=== PATIENT | female | born 1950 | race Caucasian/White ===

== ENCOUNTER → 2021-02-18 10:19 | Outpatient (CLI) | payer MEDICARE, OTHER, SELFPAY ==
--- NOTE | ~2021-02-18 | MM_ITS ---
EXAMINATION: MM screening deacon BI w lila HISTORY: Screening TECHNIQUE: Craniocaudal and mediolateral oblique 3-D tomosynthesis images were obtained and synthetic 2-D images were generated. CAD analysis was submitted and interpreted. COMPARISON: Comparison to multiple prior studies sequentially, with oldest reviewed study dated 07/16. BREAST PARENCHYMAL COMPOSITION: There are scattered areas of fibroglandular density. FINDINGS: There are benign left breast calcifications. There is no evidence of suspicious mass, calci fication, or architectural distortion to suggest malignancy in either breast. There has been no suspi cious interval change. IMPRESSION: 1. No mammographic evidence of malignancy. 2. Recommend routine screening mammography in one year. BI-RADS Category 1: Negative Reviewed, dictated and finalized at location A. IC SPECIALIST
== END ==
PROVIDERS: Visit Provider Family Medicine
DX: Z12.31 Encounter for screening mammogram for malignant neoplasm of breast (principal)
CPT/HCPCS: 77063; 77067

== ENCOUNTER 2023-03-16 15:10 | Outpatient (CLI) | payer MEDICARE, SELFPAY ==
--- NOTE | ~2023-03-16 | XR_ITS ---
EXAMINATION: XR hand RT min 3V DATE: 03/16/2023 16:02 INDICATION: Right hand pain. TECHNIQUE: 3 views of right hand were obtained. COMPARISON: None. FINDINGS: Bone alignment is normal. No fracture. There is severe osteoarthritis of distal radioulnar joint and radiolunate joint. There is mild osteoarthritis of lunate-capitate joint and triscaphe join t. There is severe osteoarthritis of first carpometacarpal joint. There is mild osteoarthritis of man y of the metacarpophalangeal joints and interphalangeal joints. There is moderate osteoarthritis of f irst interphalangeal joint, second metacarpophalangeal joint, second and third proximal interphalange al joints, and second distal interphalangeal joint. There is a loose body at first carpometacarpal shruthi int. IMPRESSION: 1. Polyarticular osteoarthritis. Reviewed, dictated and finalized at location E. IT SUPPORT SPECIALIST
== END 2023-03-16 15:11 ==
PROVIDERS: PCP Family Medicine; Visit Provider Family Medicine
DX: M79.641 Pain in right hand (principal); M19.041 Primary osteoarthritis, right hand
CPT/HCPCS: 73130

== ENCOUNTER 2023-08-02 09:56 | Outpatient (CLI) | payer MEDICARE, SELFPAY ==
--- NOTE | ~2023-08-02 | XR_ITS ---
XR knee LT min 4V Ordering provider: Miguel Orozco MD History: . M17.0 - Bilateral primary osteoarthritis of knee . Comparison: August 08, 1999 and FINDINGS: BONES: No acute fracture or dislocation. JOINT SPACES: Narrowing of the lateral compartment. Marginal osteophytes. Osteoarthritic changes of t he patellofemoral joint. SOFT TISSUES: Normal. IMPRESSION: No acute osseous abnormality left knee. Osteoarthritic changes of the knee and patellofemoral joint. Reviewed, dictated and finalized at location A.
--- NOTE | ~2023-08-02 | XR_ITS ---
XR knee RT min 4V Ordering provider: Miguel Orozco MD History: . M17.0 - Bilateral primary osteoarthritis of knee . Comparison: None. FINDINGS: BONES: No acute fracture or dislocation. JOINT SPACES: Severe narrowing of the medial compartment. Osteoarthritic changes of the patellofemora l joint. SOFT TISSUES: Normal. IMPRESSION: No acute osseous abnormality right knee. Severe osteoarthritic changes of the knee and patellofemoral joint. Reviewed, dictated and finalized at location A.
== END 2023-08-02 09:57 | disposition home or self-care (01) ==
PROVIDERS: PCP Nurse Practitioner Family; Visit Provider Orthopaedic Surgery
DX: M17.0 Bilateral primary osteoarthritis of knee (principal)
CPT/HCPCS: 73564

== ENCOUNTER 2024-03-14 15:30 | Outpatient (CLI) | payer MEDICARE, SELFPAY ==
--- NOTE | ~2024-03-14 | XR_ITS ---
EXAMINATION: XR knee LT min 4V, XR knee RT min 4V DATE: 03/14/2024 15:44 INDICATION: Bilateral primary osteoarthritis of the knees TECHNIQUE: 1. Weight bearing anteroposterior and Zamora, sunrise, and flexed lateral views of the right knee were obtained 2. Weight bearing anteroposterior and Zamora, sunrise, and flexed lateral views of the left knee w ere obtained COMPARISON: None. FINDINGS: Right knee: 8 degrees genu varum. No fracture. Tricompartmental osteoarthritis with moderate to large marginal o steophytes all 3 compartments, severe joint space narrowing in the medial compartment, moderate joint space narrowing at the medial side of the lateral compartment and mild in the patellofemoral compart ment. No right knee joint effusion. Subcutaneous varicosities about the lateral thigh and medial calf . Left knee: 12 degrees genu valgus. No fracture. There is also tricompartmental osteoarthritis with moderate to l arge marginal osteophytes in all 3 compartments, severe joint space narrowing in the lateral compartm ent, mild to moderate joint space narrowing the patellofemoral compartment and moderate joint space n arrowing at the lateral side of the medial compartment. No knee joint effusion. Subcutaneous varicosi ties at the lateral aspect of the knee and medial aspect of the calf. IMPRESSION: 1. Tricompartmental osteoarthritis of both knees, severe in the medial compartment of the right knee in the lateral compartment of the left knee. Reviewed, dictated and finalized at location A. RCYCLE DESIGNER IMPRESSION: 1. Tricompartmental osteoarthritis of both knees, severe in the medial compartm ent of the right knee in the lateral compartment of the left knee.
== END 2024-03-14 15:31 | disposition home or self-care (01) ==
PROVIDERS: PCP Nurse Practitioner Family; Visit Provider Orthopaedic Surgery
DX: M17.0 Bilateral primary osteoarthritis of knee (principal)
CPT/HCPCS: 73564

== ENCOUNTER 2024-05-02 13:16 | Outpatient (CLI) | payer MEDICARE, SELFPAY ==
--- NOTE | ~2024-05-02 | CT_ITS ---
EXAMINATION: CT LE RT wo con DATE: 05/02/2024 13:24 INDICATION: Right knee osteoarthritis for preoperative planning TECHNIQUE: High resolution computed tomography (CT) of the right lower extremity from the hip through the ankle was performed without intravenous contrast. Additional sagittal and coronal reconstruction s were performed. Automated exposure control and iterative reconstruction technique were employed. Th e dose-length product was 1846.11 mGy-cm. COMPARISON: Knee radiographs dated 03/14/2024 FINDINGS: Old distal fibular fracture which is healed in essentially anatomic alignment with lateral plate and screw fixation. No acute fractures. Polyarticular osteoarthritis, severe at the medial compartment of the left knee resulting in mild genu varum. Additional moderate osteoarthritis at the patellofemoral compartment of the right knee and multiple tarsometatarsal joints. Mild osteoarthritis at the right hip, ankle and many of the remaining joints in the right foot. Small to moderate-sized right knee gissel nt effusion. Osteitis pubis. Sigmoid diverticulosis without evident diverticulitis. No pathologically enlarged pelvic or right inguinal lymphadenopathy. IMPRESSION: 1. Severe medial compartment predominant tricompartmental osteoarthritis of the right knee with small to moderate knee joint effusion. Reviewed, dictated and finalized at location B.
--- NOTE | 2024-05-02 13:26 | ECG_ITS ---
Test Date: 2024-05-02 13:56:51 Measurements Intervals [place] Rate: 74 P: 76 MT: 176 QRS: -11 QRSD: 110 T: 22 QT: 397 QTc: 441 Interpretive Statements SINUS RHYTHM WITH OCCASIONAL SUPRAVENTRICULAR PREMATURE COMPLEXES INCOMPLETE RIGHT BUNDLE BRANCH BLOCK [90+ ms QRS DURATION, TERMINAL R IN V1/V2, 40+ ms S IN I/aVL/V4/V5/V6] WARNING: DATA QUALITY MAY AFFECT INTERPRETATION No previous ECG available for comparison Electronically Signed On 05-02-2024 14:41:13 CDT by Williams Mckeon M.D.
--- OUTSIDE RECORDS SUMMARY | 2024-05-02 13:44 | XMS_ITS | CONTINUITY OF CARE DOCUMENT ---
Author Name emma carter Address Unknown Organization [facility] Address [address] [place] [address] Phone [phone] Care Team Providers Care Leasing Machine Tender Name Role Phone Tosha SWANN [facility] Unavailable [phone] SUNIL TORRES MD Unavailable SUNIL TORRES MD Unavailable [phone] INSURANCE PROVIDERS Payer name Policy type / Coverage type [place] red republican ID [employer] insurance [employer] [id number]
--- OUTSIDE RECORDS SUMMARY | 2024-05-02 13:44 | XMS_ITS | Continuity of Care Document ---
Author Organization [facility] Address [address] [place] [address] Phone Care Team Providers Care Automobile Assembler Name Role Phone Herberth Winkler Unavailable Unavailable Procedures Procedure Date Eye Exam & Treatment Refraction Eye Exam & Treatment Refraction Advance Directives Directive Yes / No Effective Date File Name No Information Encounters Encounter Description Practice Location Reason(s) For Visit Diagnoses Date Provider Providers Copied on Encounter [facility], [address], [place], [place], [id number], tel:[phone] [facility] No Information [address] Kevin. [address], [place], [place], [facility], [place]. tel:[phone] [facility], [address] [place] [address] [address], [place], [place], [id number], tel:[phone] [facility] No Information [address] Maxime Bryce. [address], [place], [place], [facility], [place]. tel:[phone] Family History Family Member Type Diagnosis Age At Onset No Information Payers Payer name Insurance type Covered alliance party ID Authoriza tion(s) No Information Social History Type Description Quantity Date Captured Comments Sex Female Smoking Status No Information Chief Complaint And Reason For Visit No Information Reason For Referral Reason For Referral No Information History Of Present Illness Encounter Date Complaint History Of Prese nt Illness No Information Functional Status Date Functional Assessmen t No Information Instructions Date Instruction Additional Infor mation No Information Assessments Type Assessment Date No Information Patient Care Teams Name Effective Dates (start - stop) Status Members No Information
--- OUTSIDE RECORDS SUMMARY | 2024-05-02 13:44 | XMS_ITS | Data Portability ---
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 Plan of Treatment Reminders Order Date Submit Date Provider Last Modified By Organization Details Last Modified Time Details Appointments None recorded. Lab lipid panel, serum 2022 023 [email or web address] [facility] (Lab), [address] [place], [address], 3 12:53:42 lipid panel, serum 2022 023 [email or web address] [facility] (Lab), [address] [place], [address], 3 11:29:25 BMP, serum or plasma 2022 023 [email or web address] [facility] (Lab), [address] [place], [address], 3 11:29:36 CBC w/ auto diff 2022 023 [email or web address] [facility] (Lab), [address] [place], [address], 3 11:29:46 hepatic function panel, serum 2022 023 [email or web address] [facility] (Lab), [address] [place], [address], 3 11:30:18 glycohemogl obin, total, blood [email or web address] (Lab), [address] [place], [address], 3 11:30:47 vitamin D, 25-hydroxy, total, serum [email or web address] [place] [address] (Lab), [address] [place], [address], 3 11:30:32 Referral hand surgeon referral - Please call patient to schedule an appointment . 2023 024 [email or web address] Miguel Orozco MD, [address], [place], [address], 4 09:00:[address] referral - Please call patient to schedule an appointment 2023 024 [email or web address] Shaun Cowart, [address] [facility] , [address], [place], [address], 4 08:44:18 Procedures None recorded. Surgeries None recorded. Imaging MAMMO, screening, bilateral - Please call pt to schedule 2023 024 [email or web address] [facility], [address], [address], [place], [address], 4 09:42:03 Medication Orders dexlansopra zole 60 mg capsule,bip hase delayed release 2023 024 [facility], [address], [place], [place], [id number], 4 14:33:47 sertraline 100 mg tablet 2023 024 [facility], [address], [place], [place], [id number], 4 14:33:43 sertraline 100 mg tablet 2022 023 TOD [facility], [address] , [place], [place], [id number], 3 11:17:38 Patient TargetsNo targets recorded. Patient Instructions Encounter Date Encounter Id Patient Instructions Last Modified By Organization Details Last Modified Time 08/22/2022 [id number] dementia rating scale-2* TOD Not available 08/22/2022 13:04:41 alcohol misuse* TOD Not available 08/22/2022 13:04:56 depression screening* TOD Not available 08/22/2022 13:05:02 multi-dimensiona l health assessment questionnaire* TOD Not available 08/22/2022 13:04:23 Personalized Hea lth Plan and Screening Recommendations Advance Directives - Do you have one? No Advance Directives - Do we have your advance directive on file in your health record? Primary Prevention/Interven tion (prevents or decreases the chance of common diseases from occurring) Smoking Risk: Non Smoker Alcohol Misuse Screening: Negative Weight: Appropriate Overwei ght continue your current weight loss efforts try to lose 5% of your body weight try to lose 10% of your body weight Physical activity: Need more exercise/physical activity minimum of 10-20 minutes of activity that causes mild breathlessness/day Nutrition: Good Fall Risk (screened today): Low Vaccines Pneumococcal: Ordered Recommended today Influenza: Chronic Disease Risks Stroke: Low Risk I have no recommendations Heart Attack: Low risk I have no recommendations Clogging of the Arteries: Low risk I have no recommendations Diabetes: Low Risk I have no recommendations Secondary Prevention/Interven tion (detects treatable diseases before they may cause symptoms, disability, or ) Breast Cancer Screening with mammogram: Your next mammogram: Ordered Recommended today Cervical/Uterine/Ov shavon Cancer Screening: No screening necessary Osteoporosis Screening: Your next DEXA in: Ordered Recomme nded today Date Screening Last Performed: Colon Cancer Screening: Colonoscopy Date Screening Last Performed: 09/23/13 Eye Disease Screening: Dementia Risk: Low I have no recommendations Depression Screening: Negative [email or web address] Not available 08/22/2022 12:47:05 12/06/2023 [id number] dementia rating scale-2* TOD Not available 12/06/2023 15:04:45 alcohol misuse* TOD Not available 12/06/2023 15:04:36 depression screening* TOD Not available 12/06/2023 15:04:30 multi-dimensiona l health assessment questionnaire* TOD Not available 12/06/2023 15:04:40 Personalized Hea lt Plan and Screening Recommendations Advance Directives - Do you have one? No Advance Directives - Do we have your advance directive on file in your health record? Primary Prevention/Interven tion (prevents or decreases the chance of common diseases from occurring) Smoking Risk: Non Smoker Alcohol Misuse Screening: Negative Weight: Appropriate Overwei ght continue your current weight loss efforts try to lose 5% of your body weight try to lose 10% of your body weight Physical activity: Need more exercise/physical activity minimum of 10-20 minutes of activity that causes mild breathlessness/day minimum of 20-30 minutes activity that causes mild breathlessness/day Nutrition: Good Average Fall Risk (screened today): Low Vaccines Pneumococcal: Ordered Recommended today Recommended today, but you have declined No further needed Influenza: Ordered Recommended today Recommended today, but you have declined Chronic Disease Risks Stroke: Low Risk I have no recommendations Heart Attack: Low risk I have no recommendations Clogging of the Arteries: Low risk I have no recommendations Diabetes: Low Risk I have no recommendations Secondary Prevention/Interven tion (detects treatable diseases before they may cause symptoms, disability, or ) Breast Cancer Screening with mammogram: No screening necessary Cervical/Uterine/Ov shavon Cancer Screening: No screening necessary Osteoporosis Screening: No screening necessary Date Screening Last Performed: Colon Cancer Screening: No screening necessary No screening necessary Date Screening Last Performed: Eye Disease Screening: No Eye exam necessary Dementia Risk: Low I have no recommendations Depression Screening: Negative [email or web address] Not available 12/06/2023 10:56:18 Reason for Referral Doorkeeper Referral for G ranulocytosis Please call patient to schedule an appointment Referring Physician: Stone Aguilar, Family Medicine, Encounter Date: 03/22/2023 Hand Surgeon Referral for Pa in in right hand right hand pain Please call patient to schedule an appointment. Referring Physician: Stone Aguilar, Family Medicine, Encounter Date: 03/22/2023 Results Created Date Observation Date Name Description Value Unit Range Abnormal Flag Note LastModifiedBy Organization Detail LastModifiedTime 07/15/19 22 07/14/2021 AMBIG ABBRE V LP DEFAU LT ambig abbrev LP default commen t A hand- writt en panel /prof ile was recei mukesh from your offic e. In accor dance with the [facility] Ambig uous Test Code Polic y dated August 2002, we have compl eted your order by using the close st curre ntly or forme rly recog nized AMA panel . We have abril childress Lipid Panel , Test Code #30[address]. If this is not the testi ng you wishe d to recei ve on this speci men, pleas e conta ct the [facility] Clien t Inqui ry/Te chnic al Servi louis Depar tment to nithin fy the test order . We appre ciate your busin ess. Not Available [facility] [address], [place], [address], 07/15/2021 07:12:23 07/15/19 22 07/14/2021 AMBIG ABBRE V BMP8 DEFAU LT ambig abbrev BMP8 default commen t A hand- writt en panel /prof ile was recei mukesh from your offic e. In accor dance with the [facility] Ambig uous Test Code Polic y dated August 2002, we have compl eted your order by using the close st curre ntly or forme rly recog nized AMA panel . We have abril childress Basic Metab olic Panel (8), Test Code #3227 [address]. If this is not the testi ng you wishe d to recei ve on this speci men, pleas e conta ct the [facility] Clien t Inqui ry/Te chnic al Servi louis Depar tment to nithin fy the test order . We appre ciate your busin ess. Not Available [facility] ([facility]) [address], [place], [address], 07/15/2021 07:12:23 07/15/19 22 07/15/2021 VITAM IN D, 25-HY DROXY vitamin D, 25-hydroxy 35.5 NG/mL 30.0-1 00.0 Vitam in D defic iency has been defin ed by the Insti tute of Medic ine and an Endoc rine Socie ty pract ice guide line as a level of serum 25-OH vitam in D less than 20 ng/mL (1,2) . The Endoc rine Socie ty went on to furth er defin e vitam in D insuf ficie ncy as a level betwe en 21 and 29 ng/mL (2). 1. IOM (Inst itute of Medic ine). 2010. Raghav ry refer ence sharon es for calci um and D. Tapan limon [place]: The Natio nal [facility] Press . 2. Maddi isaacs MF, Yu hodges [place], Radha off-F errar i MEDEL, et al. Evalu ation , treat ment, and preve ntion of vitam in D defic iency : an Endoc rine Socie ty clini vicky pract ice guide line. JCEM. 2010; 96(7) :1911 -30. Not Available [facility] ([facility]) [address], [place], [address], 07/15/2021 07:12:23 07/15/19 22 07/15/2021 TSH TSH 3.550 uIU/m L 0.450- 4.500 Not Available [facility] ([facility]) [address], [place], [address], 07/15/2021 07:12:22 07/15/19 22 07/15/2021 LIPID PANEL cholesterol, total 191 mg/dL 100-19 9 Not Available [facility] ([facility]) [address], [place], [address], 07/15/2021 07:12:22 07/15/19 22 07/15/2021 LIPID PANEL triglyceride s 112 mg/dL 0-149 Not Available [facility] [address] [place], [address], 07/15/2021 07:12:22 07/15/19 22 07/15/2021 LIPID PANEL HDL cholesterol 59 mg/dL >39 Not Available [facility] [address] [place], [address], 07/15/2021 07:12:22 07/15/19 22 07/15/2021 LIPID PANEL VLDL cholesterol vicky 20 mg/dL 5-40 Not Available [facility] [address] [place], [address], 07/15/2021 07:12:22 07/15/19 22 07/15/2021 LIPID PANEL LDL chol calc (nih) 112 mg/dL 0-99 above high normal Not Available [facility] ([facility]) [address] [place], [address], 07/15/2021 07:12:22 07/15/19 22 07/15/2021 LIPID PANEL comment: four h club agent Not Available [facility] ([facility]) [address] [place], [address], 07/15/2021 07:12:22 07/15/19 22 07/15/2021 BASIC METAB OLIC PANEL (8) glucose 100 mg/dL 65-99 above high normal Not Available [facility] ([facility] [address] [place], [address], 07/15/2021 07:12:22 07/15/19 22 07/15/2021 BASIC METAB OLIC PANEL (8) BUN 15 mg/dL 8-27 Not Available [facility] ([facility] [address] [place], [address], 07/15/2021 07:12:22 07/15/19 22 07/15/2021 BASIC METAB OLIC PANEL (8) creatinine 0.67 mg/dL 0.57-1 .00 Not Available [facility] ([facility] [address] [place], [address], 07/15/2021 07:12:22 07/15/19 22 07/15/2021 BASIC METAB OLIC PANEL (8) potassium 4.3 mmol/ L 3.5-5. 2 Not Available [facility] ([facility] [address] [place], [address], 07/15/2021 07:12:22 07/15/19 22 07/15/2021 BASIC METAB OLIC PANEL (8) eGFR 93 mL/mi n/1.7 3 >59 Not Available [facility] ([facility]) [address] [place], [address], 07/15/2021 07:12:22 07/15/19 22 07/15/2021 BASIC METAB OLIC PANEL (8) BUN/creatini ne ratio 22 12-28 Not Available [facility] [address] [place], [address], 07/15/2021 07:12:22 07/15/19 22 07/15/2021 BASIC METAB OLIC PANEL (8) sodium 138 mmol/ L 134-14 4 Not Available [facility] [address] [place], [address], 07/15/2021 07:12:22 07/15/19 22 07/15/2021 BASIC METAB OLIC PANEL (8) chloride 101 mmol/ L 96-106 Not Available [facility] [address] [place], [address], 07/15/2021 07:12:22 07/15/19 22 07/15/2021 BASIC METAB OLIC PANEL (8) carbon dioxide, total 24 mmol/ L 20-29 Not Available [facility] ([facility] [address], [place], [address], 07/15/2021 07:12:22 07/15/19 22 07/15/2021 BASIC METAB OLIC PANEL (8) calcium 9.1 mg/dL 8.7-10 .3 Not Available [facility] ([facility] [address], [place], [address], 07/15/2021 07:12:22 07/15/19 22 07/15/2021 CBC/D IFF AMBIG UOUS DEFAU LT MCHC 33.0 g/dL 31.5-3 5.7 Not Available [facility] ([facility] [address], [place], [address], 07/15/2021 07:12:21 07/15/19 22 07/15/2021 CBC/D IFF AMBIG UOUS DEFAU LT WBC 5.1 x10e3 /uL 3.4-10 .8 Not Available [facility] ([facility] [address], [place], [address], 07/15/2021 07:12:21 07/15/19 22 07/15/2021 CBC/D IFF AMBIG UOUS DEFAU LT RBC 4.50 x10e6 /uL 3.77-5 .28 Not Available [facility] [address], [place], [address], 07/15/2021 07:12:21 07/15/19 22 07/15/2021 CBC/D IFF AMBIG UOUS DEFAU LT hemoglobin 13.3 g/dL 11.1-1 5.9 Not Available [facility] ([facility] [address], [place], [address], 07/15/2021 07:12:21 07/15/19 22 07/15/2021 CBC/D IFF AMBIG UOUS DEFAU LT hematocrit 40.3 % 34.0-4 6.6 Not Available [facility] ([facility] [address], [place], [address], 07/15/2021 07:12:21 07/15/19 22 07/15/2021 CBC/D IFF AMBIG UOUS DEFAU LT MCV 90 fL 79-97 Not Available [facility] [address], [place], [address], 07/15/2021 07:12:21 07/15/19 22 07/15/2021 CBC/D IFF AMBIG UOUS DEFAU LT MCH 29.6 pg 26.6-3 3.0 Not Available [facility] [address], [place], [address], 07/15/2021 07:12:21 07/15/19 22 07/15/2021 CBC/D IFF AMBIG UOUS DEFAU LT RDW 14.7 % 11.7-1 5.4 Not Available [facility] [address] [place], [address], 07/15/2021 07:12:21 07/15/19 22 07/15/2021 CBC/D IFF AMBIG UOUS DEFAU LT platelets 230 x10e3 /uL 150-45 0 Not Available [facility] [address] [place], [address], 07/15/2021 07:12:21 07/15/19 22 07/15/2021 CBC/D IFF AMBIG UOUS DEFAU LT neutrophils 54 % not estab. Not Available [facility] [address] [place], [address], 07/15/2021 07:12:21 07/15/19 22 07/15/2021 CBC/D IFF AMBIG UOUS DEFAU LT lymphs 34 % not estab. Not Available [facility] [address], [place], [address], 07/15/2021 07:12:21 07/15/19 22 07/15/2021 CBC/D IFF AMBIG UOUS DEFAU LT monocytes 6 % not estab. Not Available [facility] [address], [place], [address], 07/15/2021 07:12:21 07/15/19 22 07/15/2021 CBC/D IFF AMBIG UOUS DEFAU LT eos 5 % not estab. Not Available [facility] [address] [place], [address], 07/15/2021 07:12:21 07/15/19 22 07/15/2021 CBC/D IFF AMBIG UOUS DEFAU LT basos 1 % not estab. Not Available [facility] [address], [place], [address], 07/15/2021 07:12:21 07/15/19 22 07/15/2021 CBC/D IFF AMBIG UOUS DEFAU LT immature cells four h club agent Not Available [facility] [address] [place], [address], 07/15/2021 07:12:21 07/15/19 22 07/15/2021 CBC/D IFF AMBIG UOUS DEFAU LT neutrophils (absolute) 2.8 x10e3 /uL 1.4-7. 0 Not Available [facility] [address] [place], [address], 07/15/2021 07:12:21 07/15/19 22 07/15/2021 CBC/D IFF AMBIG UOUS DEFAU LT lymphs (absolute) 1.7 x10e3 /uL 0.7-3. 1 Not Available [facility] [address] [place], [address], 07/15/2021 07:12:21 07/15/19 22 07/15/2021 CBC/D IFF AMBIG UOUS DEFAU LT monocytes(ab solute) 0.3 x10e3 /uL 0.1-0. 9 Not Available [facility] [address], [place], [address], 07/15/2021 07:12:21 07/15/19 22 07/15/2021 CBC/D IFF AMBIG UOUS DEFAU LT eos (absolute) 0.3 x10e3 /uL 0.0-0. 4 Not Available [facility] [address], [place], [address], 07/15/2021 07:12:21 07/15/19 22 07/15/2021 CBC/D IFF AMBIG UOUS DEFAU LT baso (absolute) 0.1 x10e3 /uL 0.0-0. 2 Not Available [facility] [address], [place], [address], 07/15/2021 07:12:21 07/15/19 22 07/15/2021 CBC/D IFF AMBIG UOUS DEFAU LT immature granulocytes 0 % not estab. Not Available [facility] [address], [place], [address], 07/15/2021 07:12:21 07/15/19 22 07/15/2021 CBC/D IFF AMBIG UOUS DEFAU LT immature grans (abs) 0.0 x10e3 /uL 0.0-0. 1 Not Available [facility] [address], [place], [address], 07/15/2021 07:12:21 07/15/19 22 07/15/2021 CBC/D IFF AMBIG UOUS DEFAU LT NRBC four h club agent Not Available [facility] [address], [place], [address], 07/15/2021 07:12:21 07/15/19 22 07/15/2021 CBC/D IFF JOSÉ DOMINGUEZ DEFAU LT hematology comments: four h club agent A hand- writt en panel /prof ibarra was recei mukesh from your offic e. In accor dance with the [facility] José dominguez Test Code Polic y dated August 2002, we have assig monroe CBC with Diffe renti al/Pl atele t, Test Code #[address]. If this is not the testi ng you wishe d to recei ve on this speci men, pleas e conta ct the [facility] Clien t Inqui ry/ Techn ical Servi louis Depar tment to nithin fy the test order . We appre ciate your busin ess. Not Available [facility] ([facility]) [address], [place], [address], 07/15/2021 07:12:21 02/18/19 22 02/18/2021 MAMMO , scree melani, digit al, bilat eral No observ ation record ed. [id number], [address], 04/06/2022 06:20:00 03/17/19 24 03/16/2023 XR, hand No observ ation record ed. [email or web address] [facility] [address], [place], [address], 04/28/2023 12:10:27 07/31/19 24 07/27/2023 US, thyro id No observ ation record ed. [email or web address] [facility] [address], [place], [address], 08/01/2023 09:21:53 08/02/19 24 08/02/2023 XR, knee No observ ation record ed. [email or web address] [place] [address], [place], [address], 08/30/2023 17:32:48 08/02/19 24 08/02/2023 XR, knee No observ ation record ed. [email or web address] [facility] [address], [place], [address], 08/30/2023 17:33:04 03/15/19 25 03/14/2024 XR, knee, 3 view No observ ation record ed. [facility] [address], [place], [address], 03/17/2024 15:05:37 Result Notes None recorded. Problems Name Problem SNOMED Code Status Onset Date Resolution Date Notes Provider Name and Address Organization Details Recorded Time Gastroesop hageal reflux disease 884514664 Active Not Available [facility] 3 06:15:10 Osteoarthr itis of knee 997848634 Active Not Available [facility] 3 06:15:10 Knee pain Active Not Available [facility] 3 06:15:10 Osteoarthr itis 080301951 Active Not Available [facility] 3 06:15:10 Vitamin D deficiency 73636179 Active 2022 JONNY Santoyo [address], [address], [place], [address] , [employer] 3 11:07:21 Hyperglyce juliet 56615555 Active 2022 JONNY Santoyo [address], [address], [place], [address] , [employer] 3 11:08:10 Hyperchole sterolemia 44548435 Active 2022 JONNY Santoyo [address], [address], [place], [address] , [employer] 3 11:08:31 Anxiety 77649437 Active 2022 JONNY Santoyo [address], [address], [place], [address] , [employer] 3 11:15:54 Hordeolum externum of upper eyelid of left eye 5709698710974 02 Active 2022 JONNY Santoyo [address], [address], [place], [address] , [employer] 3 17:12:52 Pain in right hand 4013144371930 09 Active 2023 JONNY Santoyo [address], [address], [place], [address] , [employer] 4 15:33:50 Granulocyt osis 125818690 Active 2023 JONNY Santoyo [address], [place], [address] , [employer] 4 16:48:04 Dyspnea 514249341 Active 2023 JONNY Santoyo [address], [place], [address] , [employer] 4 17:12:59 Gastroesop hageal reflux disease without esophagiti s 807288198 Active 2023 JONNY Topete [address], [place], [address] , [employer] 4 15:16:49 Obesity 115036875 Active 2023 JONNY Topete [address], [place], [address] , [employer] 4 15:16:52 Problem Notes None recorded. Procedures Surgical History Date Name Laterality Status Provider Name and Address Organization Details Recorded Time 4 Medicare Wellness CPT Code, subsequent completed May MIRYAM Haywood [facility] [employer] [facility] 12/06/2023 10:26:02 3 Medicare Wellness CPT Code, subsequent completed Beatriz Anthony RN [place] - [facility] 08/19/2022 13:09:17 Imaging Results Imaging Date Name Status LastModified by Organiz ation Details LastModified Time 02/18/2021 MAMMO, screening, digital, bilateral completed [id number] [address], [address], 04/06/2022 06:20:00 03/16/2023 XR, hand completed [email or web address] [facility] [address], [place], [address], 04/28/2023 12:10:27 07/27/2023 US, thyroid completed [address] , [place], [address], 08/01/2023 09:21:53 08/02/2023 XR, knee completed [address] [place] [address], [address], 08/30/2023 17:32:48 08/02/2023 XR, knee completed [address], [address], 08/30/2023 17:33:04 03/14/2024 XR, knee, 3 view completed [facility] [address], [place], [address], 03/17/2024 15:05:37 Procedure Notes None recorded. Medical Equipment None Reported. Allergies Allergen ID Allergen Name Allergen Category Reaction Reaction Severity Criticality Documentation Date Start Date Code Code System Note Provider Name and Address Organization Details Recorded Time 65389 Symbicort medicatio n Not available Not available Not available 04/06/2022 49041 8 RxNorm blist ers Not Available [facility] 06:19:48 95106 Substance with sulfonami de structure and antibacte rial mechanism of action (substanc e) medicatio n nausea Not available Not available 04/06/2022 68623 8003 SNOMED Not Available [facility] 3 06:19:49 86326 prednison e medicatio n itching Not available Not available 04/06/2022 8640 RxNorm Not Available [facility] 3 06:19:49 35902 Product containin g penicilli n (product) medicatio n Not available Not available Not available 04/06/2022 88358 8001 SNOMED swell ing Not Available [facility] 3 06:19:49 49951 morphine medicatio n nausea Not available Not available 04/06/2022 7052 RxNorm Not Available [facility] 3 06:19:49 07754 Levaquin medicatio n arthralgi a (joint pain) Not available Not available 04/06/2022 31962 2 RxNorm Not Available [facility] 3 06:19:49 54386 codeine medicatio n nausea Not available Not available 04/06/2022 2670 RxNorm hives Not Available [facility] 3 06:19:49 64395 fluticaso ne / salmetero l medicatio n Not available Not available Not available 04/06/2022 00277 5 RxNorm irrit ated throa t Not Available [facility] 3 06:19:49 Medications Name Sig Start Date Stop Date Status Note LastModified by Organization Details LastModified Time nystatin 100,000 unit/mL oral suspension Take 10 mL 4 times a day by oral route for 7 days. active Not Available Not Available No t Available doxycycline hyclate 100 mg capsule Take 1 capsule twice a day by oral route for 7 days. 12/05 completed Not Available Not Available Not Available azithromyci n 250 mg tablet 2 tabs po qd x 1 day then 1 tab po qd x 4 days active Not Available Not Available No t Available prednisone 20 mg tablet Take 2 tablets every day by oral route for 5 days. active Not Available Not Available No t Available sertraline 100 mg tablet TAKE 1 & 1/2 (ONE & ONE-HALF) TABLETS BY MOUTH ONCE DAILY WITH FOOD 2023 active Not Available Not Available Not Avai lable clobetasol 0.05 % topical cream 07/02 completed Not Available Not Available Not Available Flonase 50 mcg/actuati on nasal spray,suspe nsion [place] 1 spray every day by intranasa l route. 2016 active Not Available Not Available Not Avai lable triamcinolo ne acetonide 0.1 % topical cream APPLY A THIN LAYER TO THE AFFECTED AREA(S) BY TOPICAL ROUTE 2 TIMES PER DAY 12/05 completed Not Available Not Available Not Available pantoprazol e 40 mg tablet,marichuy yed release 08/17 completed Not Available Not Available Not Available erythromyci n 5 mg/gram (0.5 %) eye ointment APPLY 1 CM RIBBON INTO THE LOWER CONJUNCTI GUCCI SAC(S) IN THE AFFECTED EYE(S) BY OPHTHALMI C ROUTE 3 TIMES PER DAY 12/05 completed Not Available Not Available Not Available triamcinolo ne acetonide 0.1 % topical ointment active Not Available Not Available Not Available Advair Diskus 250 mcg-50 mcg/dose powder for inhalation Inhale 1 puff twice a day by inhalatio n route. active Not Available Not Available No t Available hydrocortis one 2.5 % topical cream APPLY A THIN LAYER TO THE AFFECTED AREA(S) BY TOPICAL ROUTE 2 TIMES PER DAY as needed active Not Available Not Available No t Available montelukast 10 mg tablet active Not Available Not Available Not Available methylpredn isolone 4 mg tablets in a dose pack 07/02 completed Not Available Not Available Not Available albuterol sulfate HFA 90 mcg/actuati on aerosol inhaler INHALE 2 PUFFS BY MOUTH EVERY 4 TO 6 HOURS NEEDED active Not Available Not Available No t Available sertraline 50 mg tablet 11/17 completed Not Available Not Available Not Available Restasis 0.05 % eye drops in a dropperette INSTILL 1 DROP INTO EACH EYE TWICE DAILY active Not Available Not Available No t Available Zyrtec 2016 active Not Available Not Available Not Avai lable Nexium 08/27 completed Not Available Not Available Not Available Advair HFA 45 mcg-21 mcg/actuati on aerosol inhaler Inhale 2 puffs twice a day by inhalatio n route. active Not Available Not Available No t Available Advair HFA 115 mcg-21 mcg/actuati on aerosol inhaler INHALE 2 PUFFS BY MOUTH TWICE DAILY active Not Available Not Available No t Available Symbicort 160 mcg-4.5 mcg/actuati on HFA aerosol inhaler Inhale 1 puff twice a day by inhalatio n route. 06/20 completed Not Available Not Available Not Available dexlansopra zole 60 mg capsule,bip hase delayed release Take 1 capsule by mouth once daily 2023 active Not Available Not Available Not Avai lable Suprep Bowel Prep Kit 17.5 gram-3.13 gram-1.6 gram oral solution 09/25 completed Not Available Not Available Not Available Xiidra 5 % eye drops in a dropperette active Not Available Not Available Not Available Paxlovid 300 mg (150 mg x 2)-100 mg tablets in a dose pack TAKE 3 TABLETS TOGETHER (TWO 150 MG NIRMATREL VIR TABLETS AND ONE 100 MG RITONAVIR TABLET) BY MOUTH TWICE DAILY FOR 5 DAYS. 12/05 completed Not Available Not Available Not Available Vitals Date Recorded Body mass index (BMI) Body height Oxygen saturation Oxygen saturation in Arterial blood by Pulse oximetry Heart rate Body temperature Body weight Systolic blood pressure Diastolic blood pressure Provider Name and Address Organization Details Last Updated DateTime 1 36.5 kg/m2 170.18 cm 96 % 96 % 82 /min 97.8 [degF] 920002. 02 g 126 mm[Hg] 80 mm[Hg] Not Available [facility] 3 06:12:46 Date Recorded Body weight Body temperature Oxygen saturation Oxygen saturation in Arterial blood by Pulse oximetry Heart rate Systolic blood pressure Diastolic blood pressure Provider Name and Address Organization Details Last Updated DateTime 3 540671. 25 g 97 [degF] 97 % 97 % 83 /min 138 mm[Hg] 80 mm[Hg] Emilie Hernandez CMA [place] [facility] [place] [employer] [facility] 3 10:28:26 Date Recorded Body weight Body mass index (BMI) Body height Body temperature Oxygen saturation Oxygen saturation in Arterial blood by Pulse oximetry Heart rate Systolic blood pressure Diastolic blood pressure Provider Name and Address Organization Details Last Updated DateTime 4 660971. 8 g 37 kg/m2 170.18 cm 97.6 [degF] 99 % 99 % 96 /min 120 mm[Hg] 78 mm[Hg] Keiko Tracey RN [facility] [employer] [facility] 4 16:35:06 Date Recorded Body height Body mass index (BMI) Body weight Body temperature Heart rate Oxygen saturation Oxygen saturation in Arterial blood by Pulse oximetry Systolic blood pressure Provider Name and Address Organization Details Last Updated DateTime 4 170.18 cm 36.2 kg/m2 112127. 84 g 97.4 [degF] 78 /min 98 % 98 % 124 mm[Hg] Mathew Maxwell RN [place] [facility] [employer] [facility] 4 14:00:09 Social History Question Answer Notes LastModified by Outline App Details LastModified Time Tobacco Smoking Status Never Smoker Not Available [facility] 04/06/2022 06:11:36 Are You Blind Or Do You Have Difficulty Seeing? No [id number] Information not available 04/06/2022 What Is Your Level Of Caffeine Consumption? Moderate [id number] Information not available 04/06/2022 Are You Deaf Or Do You Have Serious Difficulty Hearing? No [id number] 026 Information not available 04/06/2022 What Type Of Diet Are You Following? REGULAR [id number].[id number] 026 Information not available 04/06/2022 What Is Your Occupation? Retired [id number].[id number] 026 Information not available 04/06/2022 What Is Your Relationship Status? [id number] 026 Information not available 04/06/2022 Do You Use Any Illicit Or Recreational Drugs? No [id number] 026 Information not available 04/06/2022 Has Tobacco Cessation Counseling Been Provided? No [id number] 026 Information not available 04/06/2022 Are You Currently In School? No [id number].[id number] 026 Information not available 04/06/2022 Do You Have Any Dietary Restrictions? No [id number] 026 Information not available 04/06/2022 Do You Or Have You Ever Used Any Other Forms Of Tobacco Or Nicotine? No [id number].[id number] 026 Information not available 04/06/2022 Sex: Unknown Functional Status Question Answer Note LastModified by Outline App Details LastModified Time What is your exercise level? Occasional [id number] Information not available 04/06/2022 Mental Status Question Answer Note LastModified by Outline App Details LastModified Time Do you have difficulty concentrating, remembering or making decisions? No [id number] Information not available 04/06/2022 Family History Relationship Description Onset Age of this Age Resolved Age Notes LastModified by Organization Details LastModified Time Father No current problems or disability [id number] Not available 04/06/2022 06:12:04 Mother No current problems or disability [id number] Not available 04/06/2022 06:12:04 Notes:diabetes and cancer ru ns in family on both sides Medical History No medical history recorded. Gynecological HistoryNo gynecological history recorded. Obstetrics History GPAL:G 0 P 0 0 0 0 Immunizations Vaccine Type Date Status Note Provider Nam e and Address Organization Details Recorded Time COVID-19, mRNA, LNP-S, PF, 30 mcg/0.3 mL dose 1 completed Not Available [facility] 04/06/2022 06:19:39 COVID-19, mRNA, LNP-S, PF, 30 mcg/0.3 mL dose 1 completed Not Available [facility] 04/06/2022 06:19:39 COVID-19, mRNA, LNP-S, PF, 30 mcg/0.3 mL dose 1 completed Not Available [facility] 04/06/2022 06:19:39 Pneumococcal conjugate PCV 13 1 completed Not Available [facility] 04/06/2022 06:19:40 pneumococcal polysaccharide PPV23 3 completed JONNY Santoyo [address] [facility] [address], [place], [address], [facility] 08/22/2022 12:42:46 Past Encounters Encounter ID Performer Location Encounter Start Date Encounter Closed Date Diagnosis/Indication Diagnosis SNOMED-CT Code Diagnosis ICD10 Code Diagnosis Note [id number] [facility] Primary Care [facility] [address] [facility] [address] [facility] [place] [address] 01/27/2021 00:00:00 02/04/2021 11:10:45 [id number] JONNY Santoyo [facility] Primary Care [facility] [address] [facility] [address] [place] [address] 08/22/2022 10:21:09 08/22/2022 11:25:58 Adult health examination 609003662 Z00.00 Pt mammogram due next yearColovernon oneill up to dateDeclin es DEXADeclin es shingrix series Screening for disorder 973053101 Z13.9 Continues to drink a couple beers per day. Stable Vitamin D deficiency 347 39506 E55.9 Hyperglycemia 67476693 Z 13.1 Hypercholesterolemia 136 59419 E78.5 Z79.899 Immunization due 2681040 08 Z28.39 Anxiety 90683267 F41.9 [id number] Stone Aguilar, DEFENSE TRAVEL ADMINISTRATOR-C [facility] Primary Care [facility] [address] [facility] [address] [place] [address] 03/22/2023 16:27:05 03/22/2023 16:58:16 Pain in right hand 2643178729 21581 M79.641 -2/10 pain currently- ROM and strength are limited-th robbing noted to the base of the palm-notes occ spasming/c ontracting to the hand-refer ral to ortho given-Dr. 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 Screening for disorder 611659440 Z13.9 Screening mammography 24 729877 Z12.31 Anxiety 34298382 F41.9 DAYANARA-7 (07/27)Cherry ent is doing well on current medication , will continue to refill.Den ies SI/HI. Gastroesop hageal reflux disease without esophagitis 962474770 K21.9 Patient is doing well on current medication , will refill as needed. Obesity 141114259 E66.9 Weight 231 poundsBMI: 36.2Discus sed healthy diet and routine exercise. Health Concerns Section Related Observation LastModified by Organization Detai ls LastModified Time None Recorded Concern Status LastModified by Organization Details LastModified Time None Recorded Advance Directives Directive None Recorded Payers Encounter Date Sequence Insurance Name Policy Number Policy Aguilar Covered Member ID Aguilar Member ID Guarantor Name 08/22/2022 1 [place] Yanet Gleason [id number] Yanet Gleason 08/22/2022 2 [employer] (MEDICARE SUPPLEMENT) Yanet Gleason [id number] Yanet Gleason 03/22/2023 1 [place] Yanet Gleason [id number] Yanet Chacons 03/22/2023 2 [employer] (MEDICARE SUPPLEMENT) Yanet Gleason [id number] Yanet Chacons 12/06/2023 1 [place] Yanet Gleason [id number] Yanet Chacons 12/06/2023 2 [email or web address] (MEDICARE SUPPLEMENT) Yanet Gleason [id number] Yanet Gleason Notes Date Note Type Note Provider Name and Address Organization Details Recorded Time 08/22/2022 text/html Annual WellnessReported bypatient.Diet and Nutrition:healthy diet Fracture Risk:history of fractures Physical Activity:good physical condition; discussed weightbearing activities; discussed exercise habits Additional Lifestyle Factors:drinks alcohol (mild-moderate) (beer) Depression Risk:feels sad, empty, or tearful Hearing:no loss of hearing Vision:slow partial vision loss(right eye);increased sensitivity to glare Pt is here for wellness checkup and to get her med refilled. Pt never did increase sertraline to 1 1/2 tab/day but is now experiencing some increased anxiety/depression and is considering starting this dose JONNY Santoyo [address], [place], [address], [facility] [employer] 08/22/2022 12:50:32 03/22/2023 text/html Pt is here for r ight hand pain Stone Parksd, DEFENSE TRAVEL ADMINISTRATOR-C [address], [place], [address], [employer] 03/22/2023 17:35:43 12/06/2023 text/html Patient is a 73 year old female that presents to the office for Medicare Wellness. Patient reports she is doing well overall, has no concerns at this time including chest pain and shortness of breath, nausea vomiting and diarrhea. Patient reports having a thyroid and lung biopsy this summer. Patient continues to see Pulmonology for Granulocytosis. Patient continues to see Dr. Oliveira, orthopedics, for her knee pain. They have decided against knee surgery due to patient's allergies and how she reacts to everything . Patient is continuing with the knee injections, they have been working well for the most part. 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 labs-patient had labs drawn over the summer, will obtain results and add labs on as needed.Mammogram-order edWWE-not neededColonoscopy-not neededDEXA-declinesFlu -declinesCovid-UTDTdap -UTDShingles-declinesP neumo-UTD Heather singletary, [facility] [employer] 12/13/2023 10:09:35 OBGyn Episode No OBEpisode recorded.
--- OUTSIDE RECORDS SUMMARY | 2024-05-02 13:44 | XMS_ITS | Clinical Summary ---
Author Organization [facility] Address [address] [place] [address] Care Team Providers Care Manager Pharmaceutical Name Role Phone Yashira Lancaster MD Unavailable [phone] Cristin Cook NP Primary Care Provider [phone] Allergies Active Allergy Reactions Criticality Noted Date Comments Cephalexin Unknown 12/13/2016 Codeine Unknown 12/13/2016 Codeine Sulfate Unknown 12/13/2016 Latex Unknown 12/13/2016 Levofloxacin Unknown 12/13/2016 Morphine Unknown 12/13/2016 Penicillins Unknown 12/13/2016 Prednisone Unknown 12/13/2016 Medications multivit minerals-folic acid-lutein (ESSENTIAL WOMAN 50+) 0.4-250 mg-mcg tablet Active naproxen (ALEVE) 220 mg tablet Active sertraline (ZOLOFT) 100 mg tablet daily. Active artificial tears with lanolin ointmentIndica tions:Dry Eye Active cetirizine (ZyrTEC) 10 mg tablet Active dexlansoprazol e (DEXILANT) 60 mg capsule Take 1 tablet by mouth daily Active albuterol HFA (Ventolin HFA) 90 mcg/actuation inhaler Inhale 2 puffs Active omega-3s/dha/e pa/fish oil (OMEGA 3 ORAL) Take by mouth A ctive fluticasone propionate (FLONASE) 50 mcg/actuation nasal spray Administer 1 spray into each nostril daily Active UNABLE TO FIND - ENTER DRUG NAME IN NOTES TO PHARMACY daily Vital Proteins:Sylvain agen Peptides - Patient puts 2 scoops in coffee Active montelukast (Singulair) 10 mg tablet Take 1 tablet (10 mg total) by mouth nightly 90 tablet 3 08/14/19 24 Active Advair HFA 115-21 mcg/actuation inhaler Inhale 2 puffs 2 (two) times a day Rinse mouth with water after use. Do not swallow. 12 g 5 04/30/19 25 Active fluticasone propion-salmet Debra (Advair HFA) 115-21 mcg/actuation inhaler INHALE 2 PUFFS BY MOUTH TWICE DAILY 12 g 3 03/26/19 25 025 Discontinued(Ot her) fluticasone propion-salmet Debra (ADVAIR HFA) 115-21 mcg/actuation inhaler Inhale 2 puffs 2 (two) times a day Rinse mouth with water after use. Do not swallow. 1 each 3 04/09/19 25 025 Discontinued Active Problems Problem Noted Date Diagnosed Date Thyroid nodule 07/18/2023 Moderate persistent asthma without complication 07/18/2023 Multiple pulmonary nodules 04/20/2023 Hiatal hernia 04/20/2023 Chronic cough 04/20/2023 Non-seasonal allergic rhinitis due to pollen Cigarette nicotine dependence in remission 04/19 Mediastinal lymphadenopathy 04/20/2023 Encounters Date Type Department Care Team Description 04/29/2024 Orders Only [facility] Pulmonology [address] [place] [address] [place] [address] Braxton Rose MD 04/08/2024 Telephone [facility] Medical [facility] Pulmonology [address] [place] [address] [address] [place] [address] Cristin Cook NP from Last 3 Months Surgical History Surgery Date Site/Laterality Comments ANKLE SURGERY Ankle Surgery - (Added by Conv) KNEE SURGERY Knee Surgery - (Added by Conv) WI DILATION & CURETTAGE DX&/THER NONOBSTETRIC Dilation And Curettage - (Added by Conv) LUNG BIOPSY 07/31/2023 Right THYROID SURGERY 10/12/2023 biopsy Medical History Medical History Date Comments Anxiety disorder Anxiety - (Adde d by Conv) Personal history of other di seases of the musculoskeletal system and connective tissue History of arthritis - (Adde d by TW Conv) Personal history of other me ntal and behavioral disorders History of depression - (Add ed by TW Conv) Personal history of other in fectious and parasitic diseases History of hepatitis - (Adde d by TW Conv) Personal history of other di seases of the digestive system History of rectal fissure - (Added by TW Conv) Lung disease GERD (gastroesophageal reflux disease) Headache Family History Medical History Relation Name Comments Breast cancer Maternal Grandfather Family history of malignant neoplasm of breast - (Added by TW Conv) Lung cancer Maternal Grandfather Family history of lung cancer - (Added by TW Conv) Breast cancer Maternal Grandmother Family history of malignant neoplasm of breast - (Added by TW Conv) Lung cancer Maternal Grandmother Family history of lung cancer - (Added by TW Conv) Uterine cancer Maternal Grandmother Famil y history of uterine cancer - (Added by TW Conv) Breast cancer Other Family history of malignant neoplasm of breast - Relation: Aunt (Added by TW Conv) Breast cancer Paternal Grandfather Family history of malignant neoplasm of breast - (Added by TW Conv) Lung cancer Paternal Grandfather Family history of lung cancer - (Added by TW Conv) Breast cancer Sister Family history of malignant neoplasm of breast - (Added by TW Conv) Lung cancer Sister Family history of lung cancer - (Added by TW Conv) Uterine cancer Sister Family histor y of uterine cancer - (Added by TW Conv) Relation Name Status Comments Maternal Grandfather Maternal Grandmother Other Paternal Grandfather Sister Social History Tobacco Use Types Packs/Day Years Used Date Smoking Tobacco: Former Tobacco Cessation:Counseling Given: Not Answered AUDIT-C Answer Date Recorded Q1: How often do you have a drink containing alcohol? 4 or more times a week 07/31/2023 Q2: How many drinks containi ng alcohol do you have on a typical day when you are drinking? 3 or 4 Q3: How often do you have si x or more drinks on one occasion? Monthly 07/31/2023 Personal Safety Answer Date Recorded Have you ever been in or are you currently in a harmful physical or emotional relationship or is someone making you feel afraid or unsafe? Denies 07/31/2023 Comments Unknown Sex and Gender Information Value Date Recorded Sex Assigned at Not on file Legal Sex Female 8:47 AM CDT Gender Identity Not on file Sexual Orientation Not on file Obstetrics History Last Filed Vital Signs Vital Sign Reading Time Taken Comments Blood Pressure 136/89 10/30/2023 2:22 PM CDT Pulse 73 10/30/2023 2:22 PM CDT Temperature 36.9 C (98.4 F) 10/30/2023 2:22 PM CDT Respiratory Rate 18 10/30/2023 2:22 PM CDT Oxygen Saturation 97% 10/30/2023 2:22 PM CDT Inhaled Oxygen Concentration - - Weight 105.1 kg (231 lb 12.8 oz) 10/30/2023 2:22 PM CDT Height 167 cm (5' 5.75 ) 10/30/2023 2:22 PM CDT Body Mass Index 37.7 10/30/2023 2:22 PM CDT Plan of Treatment Health Maintenance Due Date Last Done Comments Breast Cancer Screening-Mammogram 1950 Colon Cancer Screening-Colonoscopy 1950 Depression Screening 1950 Hepatitis C Screening 1950 Osteoporosis Screening-Bone Density Scan 1950 DTaP/Tdap/Td Vaccine (1 - Tdap) 1960 Hepatitis B Screening 05/19/1967 Zoster Vaccine (1 of 2) 05/19/1999 Well Visit 65+ 2014 Covid-19 Vaccine (5 - 2023-2 5 season) 2023 11/08/2020, 04/07/2020, 03/21/2020, Additional history exists Influenza Vaccine (#1) 2023 Fall Risk Assessment 07/30/2024 07/31/2023 Pneumococcal vaccine 65+ Completed 08/22/2022, 01/07 Insurance MEDICARE [facility] MEDICARE [facility] MEDICARE [employer] SENIOR SUPPLEMENT Advance Directives For more information, please contact: [phone] * Full Code (Latest Code Status on File) Date Activated Date Inactivated Comments 07/31/2023 11:28 AM 08/01/2023 5:23 AM Care Teams Manager Pharmaceutical Relationship Specialty Start Date End Date Cristin Cook NP [address] [place] [address] PCP - General Family Medicine 04/05/24 Yashira Lancaster MD Referring Physician Family Medicine 03/08/18
--- OUTSIDE RECORDS SUMMARY | 2024-05-02 13:44 | XMS_ITS | Referral Summary ---
Author Organization [facility] Address [address] [place] [address] Care Team Providers Care Watcher Lookout Tower Name Role Phone Yashira Lancaster MD Unavailable [phone] Cristin Cook NP Primary Care Provider [phone] Encounters Date Type Department Care Team Description 04/29/2024 Orders Only [facility] Pulmonology [facility] [address] [place] [address] Braxton Rose MD 04/08/2024 Telephone [facility] Pulmonology [facility] [address] [place] [address] Cristin Cook, LANNY from Last 3 Months Allergies Active Allergy Reactions Criticality Noted Date [...] dependence in remission 04/19 Mediastinal lymphadenopathy 04/20/2023 Social History Tobacco Use Types Packs/Day Years [...] on file Sexual Orientation Not on file Last Filed Vital Signs Vital Sign Reading [...] 10/30/2023 2:22 PM CDT Plan of Treatment Not on file [place] [address] [facility] MEDICARE [facility] MEDICARE [employer] [place] [address] Advance Directives For more information, please contact: [phone] * Full Code (Latest Code Status on File) Date Activated Date Inactivated Comments 07/31/2023 11:28 AM 08/01/2023 5:23 AM Care Teams Watcher [employer] Relationship Specialty Start Date End Date Cristin Cook NP [address] [place] [address] PCP - General Family Medicine 04/05/24 Yashira Lancaster MD Referring Physician Family Medicine 03/08/18
--- OUTSIDE RECORDS SUMMARY | 2024-05-02 14:08 | XMS_ITS | CONTINUITY OF CARE DOCUMENT ---
Author Name emma carter Address Unknown Organization [facility] Address [address] [place] [address] Phone [phone] Care Team Providers Care Gas Check Pad Maker Name Role Phone Tosha SWANN [facility] Unavailable SUNIL TORRES MD Unavailable SUNIL TORRES MD Unavailable [phone] INSURANCE PROVIDERS Payer name Policy type / Coverage type [place] red green party ID [employer] insurance [email or web address] [id number]
--- OUTSIDE RECORDS SUMMARY | 2024-05-02 14:08 | XMS_ITS | Clinical Summary ---
Author Organization [facility] Address [address] [place] [address] Care Team Providers Care Respiratory Practitioner Name Role Phone Yashira Lancaster MD Unavailable [phone] Cristin Cook NP Primary Care Provider [phone] Allergies Active Allergy Reactions Criticality Noted Date [...] Department Care Team Description 04/29/[address] [facility] Pulmonology [address] [place] [address] [place] [phone] Braxton Rose MD 04/08/[address] [facility] Pulmonology [address] [place] [address] [address] [place] [phone] Cristin Cook NP from Last 3 Months Surgical History Surgery Date Site/Laterality Comments ANKLE SURGERY Ankle Surgery - (Added by Conv) KNEE SURGERY Knee Surgery - (Added by Conv) [place] DILATION & CURETTAGE DX&/THER NONOBSTETRIC Dilation And [...] vaccine 65+ Completed 08/22/2022, 01/07 Insurance MEDICARE [facility] MEDICARE [facility] MEDICARE AETNA SENIOR SUPPLEMENT Advance Directives For more information, please contact: [phone] * Full Code (Latest Code Status on File) Date Activated Date Inactivated Comments 07/31/2023 11:28 AM 08/01/2023 5:23 AM Care Teams Respiratory Practitioner Relationship Specialty Start Date End Date Cristin Cook NP [address] [place] [address] PCP - General Family Medicine 04/05/24 Yashira Lancaster MD Referring Physician Family Medicine 03/08/18
--- OUTSIDE RECORDS SUMMARY | 2024-05-02 14:08 | XMS_ITS | Continuity of Care Document ---
Author Organization [facility] Address [address] [facility] [address] [place] [address] Phone Care Team Providers Care Manager Reimbursement Name Role Phone Herberth Winkler Unavailable Unavailable Procedures Procedure Date Eye Exam & Treatment Refraction Eye Exam & Treatment Refraction Advance Directives Directive Yes / No Effective Date File Name No Information Encounters Encounter Description Practice Location Reason(s) For Visit Diagnoses Date Provider Providers Copied on Encounter [facility], [address], [place], [place], [id number], tel:[phone] [facility] No Information [address] Cath[address] Kevin. [address], [place], [place], [facility], [place]. tel:[phone] [facility], [address] [place] [address] [address], [place], [place], [id number], tel:[phone] [facility] No Information [address] Maxime Bryce. [address], [place], [place], [facility], [place]. tel:[phone] Family History Family Member Type Diagnosis Age At Onset No Information Payers Payer name Insurance type Covered constitution party ID Authoriza tion(s) No Information Social [...]
--- OUTSIDE RECORDS SUMMARY | 2024-05-02 14:08 | XMS_ITS | Referral Summary ---
Author Organization [facility] Address [address] [place] [address] Care Team Providers Care Hand Reamer Name Role Phone Yashira Lancaster MD Unavailable [phone] Cristin Cook NP Primary Care Provider [phone] Encounters Date Type Department Care Team Description 04/29/2024 Orders Only [facility] Pulmonology [facility] [address] [place] [phone] Braxton Rose MD 04/08/2024 Telephone [facility] Pulmonology [facility] [address] [place] [address] Cristin Cook, LANNY from Last [...] of Treatment Not on file Insurance MEDICARE [facility] MEDICARE [facility] MEDICARE AETNA SENIOR SUPPLEMENT Advance Directives For more information, please contact: [phone] * Full Code (Latest Code Status on File) Date Activated Date Inactivated Comments 07/31/2023 11:28 AM 08/01/2023 5:23 AM Care Teams Hand Reamer Relationship Specialty Start Date End Date Cristin Cook NP [address] [place] [address] PCP - General Family Medicine 04/05/24 Yashira Lancaster MD Referring Physician Family Medicine 03/08/18
[2024-05-02 14:15] LABS: Hematocrit 41.3 % (37.0-47.0); Hemoglobin 13.7 g/dL (12.0-15.0)
[2024-05-02 14:27] LABS: Albumin Level 4.3 g/dL (3.5-5.1); Estimated Glomerular Filt Rate > 60
== END 2024-05-02 13:17 | disposition home or self-care (01) ==
PROVIDERS: PCP Nurse Practitioner Family; Visit Provider Orthopaedic Surgery
DX: Z01.818 Encounter for other preprocedural examination (principal); M17.11 Unilateral primary osteoarthritis, right knee
CPT/HCPCS: 36415; 73700; 82040; 82565; 85014; 85018; 93005

== ENCOUNTER 2024-06-14 12:44 | Outpatient (CLI) | payer MEDICARE, SELFPAY ==
--- NOTE | ~2024-06-14 | MM_ITS ---
EXAMINATION: MM screening deacon BI w lila HISTORY: Screening TECHNIQUE: Craniocaudal and mediolateral oblique 3-D tomosynthesis images were obtained and synthetic 2-D images were generated. CAD analysis was submitted and interpreted. COMPARISON: Comparison to multiple prior studies sequentially, with oldest reviewed study dated 07/25. BREAST PARENCHYMAL COMPOSITION: There are scattered areas of fibroglandular density. FINDINGS: There is no evidence of suspicious mass, calcification, or architectural distortion to sugg est malignancy in either breast. There has been no suspicious interval change. IMPRESSION: 1. No mammographic evidence of malignancy. 2. Recommend routine screening mammography in one year. BI-RADS Category 1: Negative Reviewed, dictated and finalized at location A.
== END 2024-06-14 12:45 | disposition home or self-care (01) ==
LOC: MICIMG 12:47
PROVIDERS: PCP Nurse Practitioner Family; Visit Provider Nurse Practitioner Family
DX: Z12.31 Encounter for screening mammogram for malignant neoplasm of breast (principal)
CPT/HCPCS: 77063; 77067

== ENCOUNTER 2024-06-26 09:49 | Outpatient (CLI) | payer MEDICARE, SELFPAY ==
--- OUTSIDE RECORDS SUMMARY | 2024-06-26 10:32 | XMS_ITS | Continuity of Care Document ---
Author Organization [facility] Address [address] [facility] [address] [place] [address] Phone Care Team Providers Care Exhaust Machine Operator Name Role Phone Herberth Winkler Unavailable Unavailable Procedures Procedure Date Eye Exam & Treatment Refraction Eye Exam & Treatment Refraction Advance Directives Directive Yes / No Effective Date File Name No Information Encounters Encounter Description Practice Location Reason(s) For Visit Diagnoses Date Provider Providers Copied on Encounter [facility], [address], [place], [place], [id number], tel:[phone] [facility] No Information [address] Kevin. [address], [place], [place], [facility], [place]. tel:[phone] [facility], [address] [place] [address] [address], [place], [place], [id number], tel:[phone] [facility] No Information [address] Maxime Bryce. [address], [place], [place], [facility], [place]. tel:[phone] Family History Family Member Type Diagnosis Age At Onset No Information Payers Payer name Insurance type Covered libertarian ID Authoriza tion(s) No Information Social History [...]
--- OUTSIDE RECORDS SUMMARY | 2024-06-26 10:33 | XMS_ITS | Referral Summary ---
Author Organization [facility] Address [address] [place] [address] Care Team Providers Care Assembly Line Worker Name Role Phone Yashira Lancaster MD Unavailable [phone] Cristin Cook NP Primary Care Provider [phone] Encounters Date Type Department Care Team Description 06/06/2024 3:15 PM CDT Office Visit [facility] Pulmonology [address] [place] [address] [place] [phone] Braxton Rose MD Multiple pulmonary nodules (Primary Dx); Hiatal hernia; Non-seasonal allergic rhinitis due to pollen; Cigarette nicotine dependence in remission; Mediastinal lymphadenopathy; Moderate persistent asthma without complication; BMI 37.0-37.9, adult; Chronic cough; Thyroid nodule 05/07/2024 11:37 AM CDT - 05/07/2024 11:59 PM CDT Hospital [facility] [address] [place] [address] Multiple pulmonary nodules; Hiatal hernia; Chronic cough; Non-seasonal allergic rhinitis due to pollen; Cigarette nicotine dependence in remission; Mediastinal lymphadenopathy; Moderate persistent asthma without complication; Thyroid nodule Discharge Disposition: Discharge to home or self care 04/29/2024 Orders Only [facility] Pulmonology [address] [place] [address] [place] [phone] Braxton Rose MD 04/08/2024 Telephone [facility] Pulmonology [address] [place] [address] [place] [phone] Cristin Cook NP from Last 3 Months Allergies Active Allergy [...] tablet daily. Active artificial tears with lanolin ointmentIndicat ions:Dry Eye Active cetirizine (ZyrTEC) 10 mg tablet Active dexlansoprazole (DEXILANT) 60 mg capsule Take 1 tablet by mouth daily Active albuterol HFA (Ventolin HFA) 90 mcg/actuation inhaler Inhale 2 puffs Activ e omega-3s/dha/ep a/fish oil (OMEGA 3 ORAL) Take by mouth A ctive fluticasone propionate (FLONASE) 50 mcg/actuation nasal spray Administer 1 spray into each nostril daily Active UNABLE TO FIND - ENTER DRUG NAME IN NOTES TO PHARMACY daily Vital Proteins:Collag en Peptides - Patient puts 2 scoops in coffee Active montelukast (Singulair) 10 mg tablet Take 1 tablet (10 mg total) by mouth nightly 90 tablet 3 4 Active Advair HFA 115-21 mcg/actuation inhaler Inhale 2 puffs 2 (two) times a day Rinse mouth with water after use. Do not swallow. 12 g 5 5 Active Active Problems Problem Noted Date Diagnosed Date BMI 37.0-37.9, adult 06/06/2024 Thyroid nodule 07/18/2023 Moderate persistent asthma without [...] Sign Reading Time Taken Comments Blood Pressure 132/72 06/06/2024 3:04 PM CDT Pulse 79 06/06/2024 3:04 PM CDT Temperature 36.9 C (98.4 F) 10/30/2023 2:22 PM CDT Respiratory Rate 18 06/06/2024 3:04 PM CDT Oxygen Saturation 98% 06/06/2024 3:04 PM CDT Inhaled Oxygen Concentration - - Weight 105.7 kg (233 lb) 06/06/2024 3:04 PM CDT Height 167 cm (5' 5.75 ) 06/06/2024 3:04 PM CDT Body Mass Index 37.89 06/06/2024 3:04 PM CDT Plan of Treatment Not on file Procedures Procedure Name Priority Date/Time Associated Diagnosis Comments CT CHEST WO CONTRAST Schedule Routine, Read Routine (OP Routine) 05/07/2024 11:42 AM CDT Multiple pulmonary nodules Hiatal hernia Chronic cough Non-seasonal allergic rhinitis due to pollen Cigarette nicotine dependence in remission Mediastinal lymphadenopathy Moderate persistent asthma without complication Thyroid nodule from Last 3 Months Results * CT Chest WO Contrast (05/07/2024 11:42 AM CDT) Anatomical Region Laterality Modality Body N/A Computed Tomogra phy 05/16/2024 4:09 PM CDT Narrative 05/16/2024 4:20 PM CDT EXAM DESCRIPTION: CT CHEST WO CONTRAST REASON FOR STUDY: Lung nodule, > 8mm F/u lung nodules, denies chest complaints TECHNIQUE: CT scan of the chest performed without intravenous contrast using helical scanning technique. Reconstructed coronal and sagittal MPR images reviewed. All images stored on PACS. Automated exposure control was used as a dose optimization technique for this examination. COMPARISON: 10/22/2023 FINDINGS: The sensitivity for detection of solid visceral lesions is diminished without the use of intravenous contrast. LUNGS: A tremendous number of pulmonary nodules are again seen. Many of them are calcified. The approximately 11 mm irregular noncalcified nodule in the right lower lobe is definitely smaller. It now measures about 7 mm. No definite new nodules were seen. PLEURA: No effusion. No pneumothorax. MEDIASTINUM/JAMES: No identified masses or abnormal nodes. Calcified mediastinal and hilar lymph nodes are seen. A hiatus hernia is seen. HEART: There is no pericardial effusion. CORONARY ARTERY CALCIFICATION: Present VASCULATURE: No thoracic aortic aneurysm. AXILLA: No adenopathy. CHEST WALL: No masses. No subcutaneous air. HARDWARE/LINES/TUBES: None. UPPER ABDOMEN: No significant abnormality. MUSCULOSKELETAL: No significant abnormality. OTHER: No other significant abnormality. IMPRESSION: Coronary artery calcification. Hiatus hernia. Old granulomatous disease. The approximately 11 mm irregular noncalcified nodule in the right lower lobe is definitely smaller. It now measures about 7 mm. A follow-up CT in 6 months is recommended. THIS IS AN ELECTRONICALLY VERIFIED FINAL REPORT 05/16/2024 4:20 PM - Electronically signed by Aron METZ T: Report ID: [id number] Reading Location: [id number] Procedure Note Larry Mendiola MD - 05/16/2024 EXAM DESCRIPTION: CT CHEST WO CONTRAST REASON FOR STUDY: Lung nodule, > 8mm F/u lung nodules, denies chest complaints TECHNIQUE: CT scan of the chest performed without intravenous contrastusing helical scanning technique. Reconstructed coronal and sagittal MPR images reviewed. All images stored on PACS. Automated exposure control was usedas a dose optimization technique for this examination. COMPARISON: 10/22/2023 FINDINGS: The sensitivity for detection of solid visceral lesions is diminished without the use of intravenous contrast. LUNGS: A tremendous number of pulmonary nodules are again seen. Many of them are calcified. The approximately 11 mm irregular noncalcified nodulein the right lower lobe is definitely smaller. It now measures about 7 mm.No definite new nodules were seen. PLEURA: No effusion. No pneumothorax. MEDIASTINUM/JAMES: No identified masses or abnormal nodes. Calcified mediastinal and hilar lymph nodes are seen. A hiatus hernia is seen. HEART: There is no pericardial effusion. CORONARY ARTERY CALCIFICATION: Present VASCULATURE: No thoracic aortic aneurysm. AXILLA: No adenopathy. CHEST WALL: No masses. No subcutaneous air. HARDWARE/LINES/TUBES: None. UPPER ABDOMEN: No significant abnormality. MUSCULOSKELETAL: No significant abnormality. OTHER: No other significant abnormality. IMPRESSION: Coronary artery calcification. Hiatus hernia. Old granulomatous disease. The approximately 11 mm irregular noncalcified nodule in the right lowerlobe is definitely smaller. It now measures about 7 mm. A follow-up CT in 6months is recommended. THIS IS AN ELECTRONICALLY VERIFIED FINAL REPORT 05/16/2024 4:20 PM - Electronically signed by Aron Mendiola M.D. ISAÍAS T: Report ID: [id number] Reading Location: [place] [address] Braxton Rose MD IM CT PROCEDURES Final Res ult from Last 3 Months Insurance MEDICARE [facility] MEDICARE [facility] MEDICARE AETNA SENIOR SUPPLEMENT Advance Directives For more information, please contact: [phone] * Full Code (Latest Code Status on File) Date Activated Date Inactivated Comments 07/31/2023 11:28 AM 08/01/2023 5:23 AM Care Teams Assembly Line Worker Relationship Specialty Start Date End Date Cristin Cook NP [address] [place] [address] PCP - General Family Medicine 04/05/24 Yashira Lancaster MD Referring Physician Family Medicine 03/08/18
--- OUTSIDE RECORDS SUMMARY | 2024-06-26 10:33 | XMS_ITS | Clinical Summary ---
Author Organization [facility] Address [address] [place] [address] Care Team Providers Care Sales Engineering Manager Name Role Phone Yashira Lancaster MD Unavailable [phone] Cristin Cook NP Primary Care Provider [phone] Allergies Active Allergy Reactions Criticality Noted Date [...] Description 06/06/2024 3:15 PM CDT Office Visit [facility] Pulmonology [address] [place] [phone] Braxton Rose MD Multiple pulmonary nodules (Primary Dx); Hiatal hernia; Non-seasonal allergic rhinitis due to pollen; Cigarette nicotine dependence in remission; Mediastinal lymphadenopathy; Moderate persistent asthma without complication; BMI 37.0-37.9, adult; Chronic cough; Thyroid nodule 05/07/2024 11:37 AM CDT - 05/07/2024 11:59 PM CDT Hospital [facility] [address] [place] [address] Multiple pulmonary nodules; Hiatal hernia; Chronic cough; Non-seasonal allergic rhinitis due to pollen; Cigarette nicotine dependence in remission; Mediastinal lymphadenopathy; Moderate persistent asthma without complication; Thyroid nodule Discharge Disposition: Discharge to home or self care 04/29/2024 Orders Only [facility] Pulmonology [address] [place] [phone] Braxton Rose MD 04/08/2024 Telephone [facility] Pulmonology [address] [place] [phone] Cristin Cook NP from Last 3 Months Surgical History Surgery Date Site/Laterality Comments ANKLE SURGERY Ankle Surgery - (Added by TW Conv) KNEE SURGERY Knee Surgery - (Added by TW Conv) [place] DILATION & CURETTAGE DX&/THER NONOBSTETRIC Dilation And Curettage - (Added by TW Conv) LUNG BIOPSY 07/31/2023 Right THYROID SURGERY 10/12/2023 biopsy Medical History Medical History Date Comments Anxiety disorder Anxiety - (Adde d by TW Conv) Personal [...] 06/06/2024 3:04 PM CDT Plan of Treatment Health Maintenance Due Date Last Done Comments Colon Cancer Screening-Colonoscopy 1950 Depression Screening 1950 Hepatitis C Screening 1950 Osteoporosis Screening-Bone Density Scan 1950 DTaP/Tdap/Td Vaccine (1 - Tdap) 1960 Hepatitis B Screening 05/19/1967 Zoster Vaccine (1 of 2) 05/19/1999 Well Visit 65+ 2014 Covid-19 Vaccine (5 - 2023-2 5 season) 2023 11/08/2020, 04/07/2020, 03/21/2020, Additional history exists Fall Risk Assessment 07/30/2024 07/31/2023 Influenza Vaccine (Season Ended) 2024 Pneumococcal vaccine 65+ Completed 08/22/2022, 01/07 Procedures Procedure Name Priority Date/Time Associated Diagnosis [...] signed by Aron METZ T: Report ID: [id number] Reading Location: [id number] Procedure Note Larry Mendiola MD - 05/16/2024 [...] Aron Mendiola M.D. ISAÍAS T: Report ID: [id number] Reading Location: [place] [address] [place] Braxton Rose MD IMG CT PROCEDURES Final Res ult from Last 3 Months Insurance MEDICARE [facility] MEDICARE [facility] MEDICARE AETNA SENIOR SUPPLEMENT Advance Directives For more information, please contact: [phone] * Full Code (Latest Code Status on File) Date Activated Date Inactivated Comments 07/31/2023 11:28 AM 08/01/2023 5:23 AM Care Teams Sales Engineering Manager Relationship Specialty Start Date End Date Cristin Cook NP [address] [place] [address] PCP - General Family Medicine 04/05/24 Yashira Lancaster MD Referring Physician Family Medicine 03/08/18
--- OUTSIDE RECORDS SUMMARY | 2024-06-26 10:33 | XMS_ITS | CONTINUITY OF CARE DOCUMENT ---
Author Name emma carter Address Unknown Organization [facility] Address [address] [place] [address] Phone [phone] Care Team Providers Care Faceter Name Role Phone Us Givens MDman Unavailable SUNIL TORRES MD Unavailable SUNIL TORRES MD Unavailable [phone] INSURANCE PROVIDERS Payer name Policy type / Coverage type [place] red libertarian ID AETNA [employer] insurance [employer] [id number]
[2024-06-26 11:25] LABS: Basophils Absolute Auto 0.1 K/mm3 (0.0-0.1); Basophils Percent Auto 0.9 % (0.2-1.2); Eosinophils Absolute Auto 0.2 K/mm3 (0-0.3); Eosinophils Percent Auto 3.3 % (0-4.4); Hematocrit 41.4 % (37.0-47.0); Hemoglobin 13.1 g/dL (12.0-15.0); Immature Granulocyte Absolute 0.02 K/mm3 (0.00-0.031); Immature Granulocyte Percent A 0.3 % (0-0.5); Lymphocytes Absolute Auto 1.95 K/mm3 (0.9-3.2); Lymphocytes Percent Auto 27.7 % (18.3-44.2); Mean Corpuscular HGB Conc 31.6 g/dl (32-36); Mean Corpuscular Hemoglobin 29.3 pg (26-34); Mean Corpuscular Volume 92.6 fl (80-100); Monocytes Absolute Auto 0.6 K/mm3 (0.1-0.6); Neutrophils Absolute Auto 4.1 K/mm3 (1.3-6.7); Neutrophils Percent Auto 58.8 % (45.5-73.1); Platelet Count Result 199 k/mm3 (150-375); Red Blood Count 4.47 M/mm3 (4.2-5.4); Red Cell Distribution Width 15.1 % (11.5-14.5)
[2024-06-26 11:44] LABS: Albumin Level 4.4 g/dL (3.5-5.1); Estimated Glomerular Filt Rate > 60; Glucose 92 mg/dL (65-110)
[2024-06-26 12:04] LABS: Urine Cotinine NEGATIVE
[2024-06-26 12:35] LABS: MRSA (PCR) NOT DETECTED (NOT DETECTE)
[2024-06-26 13:23] LABS: Hemoglobin A1C 5.3 % (<5.7)
== END 2024-06-26 09:50 | disposition home or self-care (01) ==
PROVIDERS: PCP Nurse Practitioner Family; Visit Provider Orthopaedic Surgery
DX: Z01.812 Encounter for preprocedural laboratory examination (principal); M17.11 Unilateral primary osteoarthritis, right knee
CPT/HCPCS: 80307; 82040; 82565; 82947; 83036; 85025; 87641

== ENCOUNTER 2024-07-23 02:08 | Day surgery (SDC) | payer MEDICARE, SELFPAY ==
[2024-06-26 10:24] VITALS: BP 134/73; PULSE 78; RESP 16; TEMP 36.7; O2SAT 96; BMI 37.5
--- NOTE | 2024-06-26 10:51 | PC.NURSE ---
Report to the Outpatient Waiting Room, entrance under the green pavilion located off [facility], at time __0830am on date ___07/23/24____. Planned Procedure Time: __10:30am .? Time changes happen often and if your time is changed the preop area will call you the afternoon before. - You and your visitor will be asked to self-screen and do not enter if you have any COVID symptoms. Please call surgeon if you need to reschedule. - A mask is optional within the hospital at this time. Patients may have clear liquids (water, carbonated beverages, clear teas, apple juice) until 3 hours prior to surgery with a maximum of 20 ounces. - No food from midnight until time of surgery and no smoking, or chewing tobacco (or any form of nicotine). No chewing gum, candy or mints. (0730am) Take only the following medications with a SIP of water on the morning of surgery: ____Inhalers and Tylenol if needed DO NOT STOP ANY OF YOUR OTHER PRESCRIPTION MEDICATIONS PRIOR TO SURGERY EXCEPT THE FOLLOWING Hold all vitamins and supplements for 3 days per anesthesiologist.Date of Last dose 07/19/24 Medications to discontinue per physician NSAIDS, ASPIRIN, ALEVE, MOTRIN for one week per Dr Orozco Date to take last dose___07/14/24 Please no make-up, nail yakut, hairspray, perfume, deodorant, or body powder the day of surgery.? No jewelry (including any body piercings) or valuables the day of surgery, leave them at home.? Please take a shower or bath the night before, or the morning of, surgery with an antibacterial soap. ( GOLD DIAL) ? Wear comfortable, loose fitting clothing.? ( Bring overnight bag, inhalers, cell phone cupola charger insulation, robe, Toiletries, Tennis Shoes) - Jewelry must be removed prior to entering the operating room.? Rings and piercings that are not removed may be cut off. - The hospital will not accept responsibility for valuables.? - Please leave all valuables, including medications, at home the day of surgery. If you are going home after surgery, a licensed local company hazmat driver must drive you home.? - NO public transportation without another adult if you receive anesthesia. - We recommend that an adult stay with you for 24 hours following discharge. - We also recommend that you do not drive, make important decision, drink alcoholic beverages, or take any drugs that were not prescribed by your health care provider for at least 24 hours after your discharge time. Follow any additional instructions given to you from your surgeon. Telephone instructions given to _Patient & Emmanuel and asked if any additional questions and then verbalized understanding. Patient advised to call surgeon office or pre surgery nurse liaison [phone] if any additional questions.
[2024-07-23] VITALS (12 sets, daily range): BP systolic 125–155; BP diastolic 63–99; PULSE 83–96; RESP 14–20; TEMP 36.6–37; O2SAT 95–100
--- NOTE | ~2024-07-23 | XR_ITS ---
EXAMINATION: [id number] DATE: 07/23/2024 15:21 INDICATION: Postoperative evaluation following right total knee arthroplasty. TECHNIQUE: Anteroposterior and lateral views of the right knee were obtained. COMPARISON: None. FINDINGS: Right total knee arthroplasty with patellar resurfacing appears well seated and in near anatomic alig nment. No fractures identified. Expected postoperative subcutaneous and intra-articular gas. IMPRESSION: 1. Right total knee arthroplasty, negative for postoperative purposes. Reviewed, dictated and finalized at location B.
--- OUTSIDE RECORDS SUMMARY | 2024-07-23 02:12 | XMS_ITS | Referral Summary ---
Author Organization [facility] Address [address] [place] [address] Care Team Providers Care Solar Mechanical Engineer Name Role Phone Yashira Lancaster MD Unavailable [phone] Cristin Cook NP Primary Care Provider [phone] Encounters Date Type Department Care Team Description 06/06/2024 3:15 PM CDT Office Visit [facility] Pulmonology [address] [place] [address] [place] [phone] Braxton Rose MD Multiple pulmonary nodules (Primary Dx); Hiatal hernia; Non-seasonal allergic rhinitis due to pollen; Cigarette nicotine dependence in remission; Mediastinal lymphadenopathy; Moderate persistent asthma without complication; BMI 37.0-37.9, adult; Chronic cough; Thyroid nodule 05/07/2024 11:37 AM CDT - 05/07/2024 11:59 PM CDT Hospital En[facility] [address] [place] [address] Multiple pulmonary nodules; Hiatal hernia; Chronic cough; Non-seasonal allergic rhinitis due to pollen; Cigarette nicotine dependence in remission; Mediastinal lymphadenopathy; Moderate persistent asthma without complication; Thyroid nodule Discharge Disposition: Discharge to home or self care 04/29/2024 Orders Only [facility] Pulmonology [address] [place] [address] [place] [address] [phone] Braxton Rose MD from Last 3 Months Allergies Active Allergy [...] 3:04 PM CDT Height 167 cm (5' 5.75) 06/06/2024 3:04 PM CDT Body Mass Index [...] signed by Aron METZ T: Report ID: [id number] Reading Location: [place] [address] Procedure Note Larry Mendiola MD - 05/16/2024 [...] Aron Mendiola M.D. ISAÍAS T: Report ID: [id number] Reading Location: [place] [address] Braxton Rose MD IMG CT PROCEDURES Final Res ult from Last 3 Months Insurance MEDICARE [facility] MEDICARE [facility] MEDICARE [employer] SENIOR SUPPLEMENT Advance Directives For more information, please contact: [phone] * Full Code (Latest Code Status on File) Date Activated Date Inactivated Comments 07/31/2023 11:28 AM 08/01/2023 5:23 AM Care Teams Solar Mechanical Engineer Relationship Specialty Start Date End Date Cristin Cook NP [address] [place] [address] PCP - General Family Medicine 04/05/24 Yashira Lancaster MD Referring Physician Family Medicine 03/08/18
--- OUTSIDE RECORDS SUMMARY | 2024-07-23 02:12 | XMS_ITS | CONTINUITY OF CARE DOCUMENT ---
Author Name emma carter Address Unknown Organization [facility] Address [address] [place] [address] Phone [phone] Care Team Providers Care Bowl Turner Name Role Phone Us Givens MDman Unavailable SUNIL TORRES MD Unavailable [phone] SUNIL TORRES MD Unavailable INSURANCE PROVIDERS Payer name Policy type / Coverage type [place] red republican ID [employer] insurance [employer] [id number]
--- OUTSIDE RECORDS SUMMARY | 2024-07-23 02:12 | XMS_ITS | Continuity of Care Document ---
Author Organization [facility] Address [address] [place] [address] Phone Care Team Providers Care Agricultural Pilot Name Role Phone Herberth Winkler Unavailable Unavailable Procedures Procedure Date Eye Exam & Treatment Refraction Eye Exam & Treatment Refraction Advance Directives Directive Yes / No Effective Date File Name No Information Encounters Encounter Description Practice Location Reason(s) For Visit Diagnoses Date Provider Providers Copied on Encounter [facility], [address], [place], [place], [id number], tel:[phone] [facility] No Information 2201 0 Cathi Kevin. [address], [place], [place], [facility] [place], [place]. tel:[phone] [facility], [address] [place] [address] [address], [place], [place], [id number], tel:[phone] [facility] No Information [address] 9 Maxime Bryce. [address], [place], [place], [facility] [place], [place]. tel:[phone] Family History Family Member Type Diagnosis Age At Onset No Information Payers Payer name Insurance type Covered green party ID Authoriza tion(s) No Information Social [...]
--- OUTSIDE RECORDS SUMMARY | 2024-07-23 02:12 | XMS_ITS | Data Portability ---
Author Organization [facility] [employer], Main Office Address [address] [place] [address] Care Team Providers Care Cardiac Cath Technologist Name Role Phone AMARIS LANCASTER Primary Care Provider AMARIS LANCASTER Referring Provider [phone] Assessment No assessment recorded. Plan of Treatment Reminders Order Date Submit Date Provider Last Modified By Organization Details Last Modified Time Details Appointments None recorded. Lab lipid panel, serum 2022 023 [email or web address] [facility] (Lab), [address] [place], [address], 3 12:53:42 lipid panel, serum 2022 023 [email or web address] [facility] (Lab), [address] [place], [address], 3 11:29:25 BMP, serum or plasma 2022 023 [email or web address] [facility] (Lab), [address] [place], [address], 3 11:29:36 CBC w/ auto diff 2022 023 [email or web address] [facility] (Lab), [address] [place], [address], 3 11:29:46 hepatic function panel, serum 2022 023 [email or web address] [facility] (Lab), [address] [place], [address], 3 11:30:18 glycohemogl obin, total, blood [email or web address] (Lab), [address] [place], [address], 3 11:30:47 vitamin D, 25-hydroxy, total, serum [email or web address] [place] [address] (Lab), [address] [place], [address], 3 11:30:32 Referral hand surgeon referral - Please call patient to schedule an appointment . 2023 024 [email or web address] Miguel Orozco MD, [address] [facility] [address], [place], [address], 4 09:00:[address] referral - Please call patient to schedule an appointment 2023 024 [email or web address] Shaun Cowart, [address] [facility] , [address], [place], [address], 4 08:44:18 Procedures None recorded. Surgeries None recorded. Imaging MAMMO, screening, bilateral - Please call pt to schedule 2023 024 [email or web address] [address] [facility], [address], [address], [place], [address], 4 09:42:03 Medication Orders dexlansopra zole 60 mg capsule,bip hase delayed release 2023 024 [id number], [address], [place], [place], [id number], 4 14:33:47 sertraline 100 mg tablet 2023 024 [id number], [address], [place], [place], [id number], 4 14:33:43 sertraline 100 mg tablet 2022 023 TOD [facility][id number], [address] , [place], [place], [id number], 3 11:17:38 Patient TargetsNo targets recorded. Patient Instructions Encounter Date Encounter Id Patient Instructions Last Modified By Organization Details Last Modified Time 08/22/2022 [id number] dementia rating scale-2* TOD Not available 08/22/2022 13:04:41 alcohol misuse* TOD Not available 08/22/2022 13:04:56 depression screening* TOD Not available 08/22/2022 13:05:02 multi-dimensiona l health assessment questionnaire* TOD Not available 08/22/2022 13:04:23 Personalized Hea lth Plan and Screening Recommendations Advance Directives - Do you have one? No Patient declined information. Advance Directives - Do we have your advance directive on file in your health record? Primary Prevention/Interven tion (prevents or decreases the chance of common diseases from occurring) Smoking Risk: Non Smoker I have no recommendations. Alcohol Misuse Screening: Negative I have no recommendations. Weight: Overweight try to lose 10% of your body weight Physical activity: Need more exercise/physical activity minimum of 10-20 minutes of activity that causes mild breathlessness/day Nutrition: Good Fall Risk (screened today): Low Vaccines Pneumococcal: Recommended today Influenza: Patient does not get flu shots. Chronic Disease Risks Stroke: Low Risk I have no recommendations Heart Attack: Low risk I have no recommendations Clogging of the Arteries: Low risk I have no recommendations Diabetes: Low Risk I have no recommendations Secondary Prevention/Interven tion (detects treatable diseases before they may cause symptoms, disability, or ) Breast Cancer Screening with mammogram: Recommended today Cervical/Uterine/Ov shavon Cancer Screening: No screening necessary Osteoporosis Screening: Recommended today Date Screening Last Performed: Colon Cancer Screening: Colonoscopy In: 09/25/2023 Date Screening Last Performed: 09/23/13 Eye Disease Screening: Patient has upcoming appointment in October. Dementia Risk: Low I have no recommendations Depression Screening: Negative [email or web address] Not available 08/22/2022 12:47:05 12/06/2023 [id number] dementia rating scale-2* TOD Not available 12/06/2023 15:04:45 alcohol misuse* TOD Not available 12/06/2023 15:04:36 depression screening* TOD Not available 12/06/2023 15:04:30 multi-dimensiona l health assessment questionnaire* OTD Not available 12/06/2023 15:04:40 Personalized Hea lt Plan and Screening Recommendations Advance Directives - Do you have one? No I have no recommendations Advance Directives - Do we have your advance directive on file in your health record? I have no recommendations Primary Prevention/Interven tion (prevents or decreases the chance of common diseases from occurring) Smoking Risk: Non Smoker I have no recommendations Alcohol Misuse Screening: Negative I have no recommendations Weight: Overweight try to lose 10% of your body weight Physical activity: Need more exercise/physical activity minimum of 20-30 minutes activity that causes mild breathlessness/day Nutrition: Average Eat Heart Healthy Diet Fall Risk (screened today): Low I have no recommendations Vaccines Pneumococcal: No further needed Influenza: Recommended today, but you have declined Chronic [...] I have no recommendations Depression Screening: Negative I have no recommendations [email or web address] Not available 12/06/2023 10:56:18 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 Not Available [facility] ([facility]) [address] [facility], [place], [address], 07/15/2021 07:12:23 07/15/19 22 07/14/2021 AMBIG ABBRE [...] ciate your busin ess. Not Available [facility] ([facility]) [address] [facility], [place], [address], 07/15/2021 07:12:23 07/15/19 22 07/15/2021 VITAM IN [...] IOM (Inst itute of Medic ine). 2010. Dieta ry refer ence intak es for calci um and D. Tapan limon [place]: The [facility] . 2. Maddi isaacs MF, Yu hodges [place], Radha off-F ashia i MEDEL, et al. Evalu ation , treat ment, and preve ntion of vitam in D defic iency : an Endoc rine Socie ty clini vicky pract ice guide line. JCEM. 2010; 96(7) :1911 -30. Not Available [facility] ([facility]) [address] [facility], [place], [address], 07/15/2021 07:12:23 07/15/1907/15/2021 TSH TSH 3.550 uIU/m L 0.450- 4.500 Not Available [facility] ([facility]) [address] [facility], [place], [address], 07/15/2021 07:12:22 07/15/19 22 07/15/2021 LIPID PANEL cholesterol, total 191 mg/dL 100-19 9 Not Available [facility] ([facility]) [address] [facility], [place], [address], 07/15/2021 07:12:22 07/15/19 22 07/15/2021 LIPID PANEL triglyceride s 112 mg/dL 0-149 Not Available [facility] ([facility]) [address] [facility] [place], [address], 07/15/2021 07:12:22 07/15/19 22 07/15/2021 LIPID PANEL HDL cholesterol 59 mg/dL >39 Not Available [facility] ([facility]) [address] [facility] [place], [address], 07/15/2021 07:12:22 07/15/19 22 07/15/2021 LIPID PANEL VLDL cholesterol vicky 20 mg/dL 5-40 Not Available [facility] ([facility]) [address] [place], [address], 07/15/2021 07:12:22 07/15/19 22 07/15/2021 LIPID PANEL LDL chol calc (nih) 112 mg/dL 0-99 above high normal Not Available [facility] ([facility]) [address] [facility] [place], [address], 07/15/2021 07:12:22 07/15/19 22 07/15/2021 LIPID PANEL comment: zigzag topstitcher Not Available [facility] ([facility]) [address] [facility] [place], [address], 07/15/2021 07:12:22 07/15/19 22 07/15/2021 BASIC METAB OLIC PANEL (8) glucose 100 mg/dL 65-99 above high normal Not Available [facility] ([facility]) [address] [place], [address], 07/15/2021 07:12:22 07/15/19 22 07/15/2021 BASIC METAB OLIC PANEL (8) BUN 15 mg/dL 8-27 Not Available [facility] ([facility]) [address] [place], [address], 07/15/2021 07:12:22 07/15/19 22 07/15/2021 BASIC METAB OLIC PANEL (8) creatinine 0.67 mg/dL 0.57-1 .00 Not Available [facility] ([facility]) [address] [facility] [place], [address], 07/15/2021 07:12:22 07/15/19 22 07/15/2021 BASIC METAB OLIC PANEL (8) potassium 4.3 mmol/ L 3.5-5. 2 Not Available [facility] ([facility]) [address] [facility] [place], [address], 07/15/2021 07:12:22 07/15/19 22 07/15/2021 BASIC METAB OLIC PANEL (8) eGFR 93 mL/mi n/1.7 3 >59 Not Available [facility] ([facility]) [address] [facility] [place], [address], 07/15/2021 07:12:22 07/15/19 22 07/15/2021 BASIC METAB OLIC PANEL (8) BUN/creatini ne ratio 22 12-28 Not Available [facility] ([facility]) [address] [place], [address], 07/15/2021 07:12:22 07/15/19 22 07/15/2021 BASIC METAB OLIC PANEL (8) sodium 138 mmol/ L 134-14 4 Not Available [facility] ([facility]) [address] [place], [address], 07/15/2021 07:12:22 07/15/19 22 07/15/2021 BASIC METAB OLIC PANEL (8) chloride 101 mmol/ L 96-106 Not Available [facility] ([facility]) [address] [place], [address], 07/15/2021 07:12:22 07/15/19 22 07/15/2021 BASIC METAB OLIC PANEL (8) carbon dioxide, total 24 mmol/ L 20-29 Not Available [facility] ([facility]) [address] [facility], [place], [address], 07/15/2021 07:12:22 07/15/19 22 07/15/2021 BASIC METAB OLIC PANEL (8) calcium 9.1 mg/dL 8.7-10 .3 Not Available [facility] ([facility]) [address] [facility], [place], [address], 07/15/2021 07:12:22 07/15/19 22 07/15/2021 CBC/D IFF AMBIG UOUS DEFAU LT MCHC 33.0 g/dL 31.5-3 5.7 Not Available [facility] ([facility]) [address] [facility], [place], [address], 07/15/2021 07:12:21 07/15/19 22 07/15/2021 CBC/D IFF AMBIG UOUS DEFAU LT WBC 5.1 x10e3 /uL 3.4-10 .8 Not Available [facility] ([facility]) [address] [facility], [place], [address], 07/15/2021 07:12:21 07/15/19 22 07/15/2021 CBC/D IFF AMBIG UOUS DEFAU LT RBC 4.50 x10e6 /uL 3.77-5 .28 Not Available [facility] ([facility]) [address] [facility], [place], [address], 07/15/2021 07:12:21 07/15/19 22 07/15/2021 CBC/D IFF AMBIG UOUS DEFAU LT hemoglobin 13.3 g/dL 11.1-1 5.9 Not Available [facility] ([facility]) [address] [facility], [place], [address], 07/15/2021 07:12:21 07/15/19 22 07/15/2021 CBC/D IFF AMBIG UOUS DEFAU LT hematocrit 40.3 % 34.0-4 6.6 Not Available [facility] ([facility]) [address] [facility], [place], [address], 07/15/2021 07:12:21 07/15/19 22 07/15/2021 CBC/D IFF AMBIG UOUS DEFAU LT MCV 90 fL 79-97 Not Available [facility] ([facility]) [address] [facility], [place], [address], 07/15/2021 07:12:21 07/15/19 22 07/15/2021 CBC/D IFF AMBIG UOUS DEFAU LT MCH 29.6 pg 26.6-3 3.0 Not Available [facility] ([facility]) [address] [facility], [place], [address], 07/15/2021 07:12:21 07/15/19 22 07/15/2021 CBC/D IFF AMBIG UOUS DEFAU LT RDW 14.7 % 11.7-1 5.4 Not Available [facility] ([facility]) [address] [facility], [place], [address], 07/15/2021 07:12:21 07/15/19 22 07/15/2021 CBC/D IFF AMBIG UOUS DEFAU LT platelets 230 x10e3 /uL 150-45 0 Not Available [facility] ([facility]) [address] [facility], [place], [address], 07/15/2021 07:12:21 07/15/19 22 07/15/2021 CBC/D IFF AMBIG UOUS DEFAU LT neutrophils 54 % not estab. Not Available [facility] ([facility]) [address] [place], [address], 07/15/2021 07:12:21 07/15/19 22 07/15/2021 CBC/D IFF AMBIG UOUS DEFAU LT lymphs 34 % not estab. Not Available [facility] ([facility]) [address] [facility], [place], [address], 07/15/2021 07:12:21 07/15/19 22 07/15/2021 CBC/D IFF AMBIG UOUS DEFAU LT monocytes 6 % not estab. Not Available [facility] ([facility]) [address] [facility], [place], [address], 07/15/2021 07:12:21 07/15/19 22 07/15/2021 CBC/D IFF AMBIG UOUS DEFAU LT eos 5 % not estab. Not Available [facility] ([facility]) [address] [facility], [place], [address], 07/15/2021 07:12:21 07/15/19 22 07/15/2021 CBC/D IFF AMBIG UOUS DEFAU LT basos 1 % not estab. Not Available [facility] ([facility]) [address] [facility], [place], [address], 07/15/2021 07:12:21 07/15/19 22 07/15/2021 CBC/D IFF AMBIG UOUS DEFAU LT immature cells zigzag topstitcher Not Available [facility] ([facility]) [address] [facility], [place], [address], 07/15/2021 07:12:21 07/15/19 22 07/15/2021 CBC/D IFF AMBIG UOUS DEFAU LT neutrophils (absolute) 2.8 x10e3 /uL 1.4-7. 0 Not Available [facility] ([facility]) [address] [place], [address], 07/15/2021 07:12:21 07/15/19 22 07/15/2021 CBC/D IFF AMBIG UOUS DEFAU LT lymphs (absolute) 1.7 x10e3 /uL 0.7-3. 1 Not Available [facility] ([facility]) [address] [place], [address], 07/15/2021 07:12:21 07/15/19 22 07/15/2021 CBC/D IFF AMBIG UOUS DEFAU LT monocytes(ab solute) 0.3 x10e3 /uL 0.1-0. 9 Not Available [facility] ([facility]) [address] [facility], [place], [address], 07/15/2021 07:12:21 07/15/19 22 07/15/2021 CBC/D IFF AMBIG UOUS DEFAU LT eos (absolute) 0.3 x10e3 /uL 0.0-0. 4 Not Available [facility] ([facility]) [address] [facility], [place], [address], 07/15/2021 07:12:21 07/15/19 22 07/15/2021 CBC/D IFF AMBIG UOUS DEFAU LT baso (absolute) 0.1 x10e3 /uL 0.0-0. 2 Not Available [facility] ([facility]) [address] [facility], [place], [address], 07/15/2021 07:12:21 07/15/19 22 07/15/2021 CBC/D IFF AMBIG UOUS DEFAU LT immature granulocytes 0 % not estab. Not Available [facility] ([facility]) [address] [facility], [place], [address], 07/15/2021 07:12:21 07/15/19 22 07/15/2021 CBC/D IFF AMBIG UOUS DEFAU LT immature grans (abs) 0.0 x10e3 /uL 0.0-0. 1 Not Available [facility] ([facility]) [address] [facility], [place], [address], 07/15/2021 07:12:21 07/15/19 22 07/15/2021 CBC/D IFF AMBIG UOUS DEFAU LT NRBC zigzag topstitcher Not Available [facility] ([facility]) [address] [place], [address], 07/15/2021 07:12:21 07/15/19 22 07/15/2021 CBC/D IFF JOSÉ DOMINGUEZ DEFAU LT hematology comments: zigzag topstitcher A hand- writt en panel /prof ibarra [...] ciate your busin ess. Not Available [facility] ([facility]) [address] [facility], [place], [address], 07/15/2021 07:12:21 02/18/19 22 02/18/2021 MAMMO , scree melani, digit al, bilat eral No observ ation record ed. [id number] [facility] [address] [facility] [address], [place], [address], 04/06/2022 06:20:00 03/17/19 24 03/16/2023 XR, hand No observ ation record ed. [email or web address] [facility] [address], [place], [address], 04/28/2023 12:10:27 07/31/19 24 07/27/2023 US, thyro id No observ ation record ed. [email or web address] [facility] [address], [place], [address], 08/01/2023 09:21:53 08/02/19 24 08/02/2023 XR, knee No observ ation record ed. [email or web address] [facility] [address], [place], [address], 08/30/2023 17:32:48 08/02/19 24 08/02/2023 XR, knee No observ ation record ed. [email or web address] [facility] [address], [place], [address], 08/30/2023 17:33:04 03/15/19 25 03/14/2024 XR, knee, 3 view No observ ation record ed. [facility] [address], [place], [address], 03/17/2024 15:05:37 05/04/19 25 05/02/2024 CT, lower leg, w/o contr ast No observ ation record ed. [email or web address] [facility] [address], [place], [address], 05/03/2024 11:07:57 06/15/19 25 06/14/2024 MAMMO , scree melani, bilat eral No observ ation record ed. [email or web address] [facility] [address], [place], [address], 06/17/2024 12:22:46 Result Notes None recorded. Problems Name Problem SNOMED Code Status Onset Date Resolution Date Notes Provider Name and Address Organization Details Recorded Time Gastroesop hageal reflux disease 324702985 Active Not Available [facility] 3 06:15:10 Osteoarthr itis of knee 468953929 Active Not Available [facility] 3 06:15:10 Knee pain Active Not Available [facility] 3 06:15:10 Osteoarthr itis 296349474 Active Not Available [facility] 3 06:15:10 Vitamin D deficiency 15886993 Active 2022 JONNY Santoyo [address], [place], [address] , [place] [facility] 3 11:07:21 Hyperglyce juliet 07692584 Active 2022 Stone Aguilar, [employer] [address], [address], [place], [address] , [employer] 3 11:08:10 Hyperchole sterolemia 98601677 Active 2022 Stnoe Aguilar [employer] [address], [address], [place], [address] , [employer] 3 11:08:31 Anxiety 18572235 Active 2022 GISSELL SantoyoP-[employer] [address], [address], [place], [address] , [employer] 3 11:15:54 Hordeolum externum of upper eyelid of left eye 6117059355201 02 Active 2022 Stone Aguilar [employer] [address], [address], [place], [address] , [employer] 3 17:12:52 Pain in right hand 0592067590777 09 Active 2023 GISSELL SantoyoP-[employer] [address], [address], [place], [address] , [employer] 4 15:33:50 Granulocyt osis 712991901 Active 2023 Stone Aguilar [employer] [address], [address], [place], [address] , [employer] 4 16:48:04 Dyspnea 407814647 Active 2023 Stone Aguilar [employer] [address], [address], [place], [address] , [employer] 4 17:12:59 Gastroesop hageal reflux disease without esophagiti s 621873206 Active 2023 NISSA Topete[employer] [address], [address], [place], [address] , [employer] 4 15:16:49 Obesity 410361146 Active 2023 JONNY Topete [address] [facility], [facility] [address], [place], [address] , [email or web address] 4 15:16:52 Problem Notes None recorded. Procedures Surgical History Date Name Laterality Status Provider Name and Address Organization Details Recorded Time 4 Medicare Wellness CPT Code, subsequent completed Emily Haywood RN [email or web address] 12/06/2023 10:26:02 3 Medicare Wellness CPT Code, subsequent completed Beatriz Anthony RN [email or web address] 08/19/2022 13:09:17 Imaging Results None recorded. Procedure Notes None recorded. Medical Equipment None Reported. Allergies Allergen ID Allergen Name Allergen Category Reaction Reaction Severity Criticality Documentation Date Start Date Code Code System Note Provider Name and Address Organization Details Recorded Time 71684 Symbicort medicatio n Not available Not available Not available 04/06/2022 42657 8 RxNorm blist ers Not Available [facility] 3 06:19:48 47578 Substance with sulfonami de structure and antibacte rial mechanism of action (substanc e) medicatio n nausea Not available Not available 04/06/2022 40161 8003 SNOMED Not Available [facility] 3 06:19:49 69542 prednison e medicatio n itching Not available Not available 04/06/2022 8640 RxNorm Not Available [facility] 3 06:19:49 36849 Product containin g penicilli n (product) medicatio n Not available Not available Not available 04/06/2022 75256 8001 SNOMED swell ing Not Available [facility] 3 06:19:49 52901 morphine medicatio n nausea Not available Not available 04/06/2022 7052 RxNorm Not Available [facility] 3 06:19:49 20092 Levaquin medicatio n arthralgi a (joint pain) Not available Not available 04/06/2022 16693 2 RxNorm Not Available [facility] 3 06:19:49 52131 codeine medicatio n nausea Not available Not available 04/06/2022 2670 RxNorm hives Not Available [facility] 3 06:19:49 74919 fluticaso ne / salmetero l medicatio n Not available Not available Not available 04/06/2022 95484 5 RxNorm irrit ated throa t Not Available [facility] 3 06:19:49 Medications Name Sig Start Date [...] Flonase 50 mcg/actuati on nasal spray,suspe nsion [place] 1 spray every day by intranasa l [...] Available Not Available Vitals Date Recorded Body weight Body mass index (BMI) Body height Body temperature Oxygen saturation Oxygen saturation in Arterial blood by Pulse oximetry Heart rate Systolic blood pressure Diastolic blood pressure Provider Name and Address Organization Details Last Updated DateTime 4 149202. 8 g 37 kg/m2 170.18 cm 97.6 [degF] 99 % 99 % 96 /min 120 mm[Hg] 78 mm[Hg] Keiko Tracey RN [facility] [employer] [facility] 4 16:35:06 Date Recorded Body weight Body temperature Oxygen saturation Oxygen saturation in Arterial blood by Pulse oximetry Heart rate Systolic blood pressure Diastolic blood pressure Provider Name and Address Organization Details Last Updated DateTime 3 601959. 25 g 97 [degF] 97 % 97 % 83 /min 138 mm[Hg] 80 mm[Hg] Emilie Hernandez CMA [facility] [employer] [facility] 3 10:28:26 Date Recorded Body height Body mass index (BMI) Body weight Body temperature Heart rate Oxygen saturation Oxygen saturation in Arterial blood by Pulse oximetry Systolic blood pressure Provider Name and Address Organization Details Last Updated DateTime 4 170.18 cm 36.2 kg/m2 841384. 84 g 97.4 [degF] 78 /min 98 % 98 % 124 mm[Hg] Mathew Maxwell RN [facility] [employer] [facility] 4 14:00:09 Date Recorded Body mass index (BMI) Body height Oxygen saturation Oxygen saturation in Arterial blood by Pulse oximetry Heart rate Body temperature Body weight Systolic blood pressure Diastolic blood pressure Provider Name and Address Organization Details Last Updated DateTime 1 36.5 kg/m2 170.18 cm 96 % 96 % 82 /min 97.8 [degF] 442213. 02 g 126 mm[Hg] 80 mm[Hg] Not Available [facility] 3 06:12:46 Social History Question Answer Notes LastModified by Organizat ion Details LastModified Time Tobacco Smoking Status Never Smoker Not Available [facility] 04/06/2022 06:11:36 Are You Blind Or Do You Have Difficulty Seeing? No [id number] Information not available 04/06/2022 What Is Your Level Of Caffeine Consumption? Moderate [id number] Information not available 04/06/2022 Are You Deaf Or Do You Have Serious Difficulty Hearing? No [id number] Information not available 04/06/2022 What Type Of Diet Are You Following? REGULAR [id number] Information not available 04/06/2022 What Is Your Relationship Status? [id number] Information not available 04/06/2022 Has Tobacco Cessation Counseling Been Provided? No [id number] Information not available 04/06/2022 Are You Currently In School? No [id number] Information not available 04/06/2022 Do You Have Any Dietary Restrictions? No [id number] Information not available 04/06/2022 Sex: Unknown Functional Status Question Answer Note LastModified by Organizat ion Details LastModified Time Do you use any illicit or recreational drugs? No [id number] Information not available 04/06/2022 Do you or have you ever used any other forms of tobacco or nicotine? No [id number] Information not available 04/06/2022 What is your occupation? retired [id number] Information not available 04/06/2022 What is your exercise level? Occasional [id number] Information not available 04/06/2022 Mental Status Question Answer Note LastModified by Organizat ion Details LastModified Time Do you have difficulty concentrating, remembering or making decisions? No [id number] Information not available 04/06/2022 Family History Relationship Description Onset Age of this Age Resolved Age Notes LastModified by Organization Details LastModified Time Father No current problems or disability [id number] Not available 04/06/2022 06:12:04 Mother No current problems or disability [id number] Not available 04/06/2022 06:12:04 Notes:diabetes and cancer ru ns in family on both sides Medical History No medical history recorded. Gynecological HistoryNo gynecological history recorded. Obstetrics History GPAL:G 0 P 0 0 0 0 Immunizations Vaccine Type Date Status Note Provider Philip vance and Address Organization Details Recorded Time COVID-19, mRNA, LNP-S, PF, 30 mcg/0.3 mL dose completed Not Available [facility] 04/06/2022 06:19:39 COVID-19, mRNA, LNP-S, PF, 30 mcg/0.3 mL dose 1 completed Not Available [facility] 04/06/2022 06:19:39 COVID-19, mRNA, LNP-S, PF, 30 mcg/0.3 mL dose 1 completed Not Available [facility] 04/06/2022 06:19:39 Pneumococcal conjugate PCV 13 1 completed Not Available [facility] 04/06/2022 06:19:40 pneumococcal polysaccharide PPV23 3 completed NISSA Santoyo-Lara [address] [facility], [facility] [address], [place], [address], [facility] [employer] 08/22/2022 12:42:46 Past Encounters Encounter ID Performer Location Encounter Start Date Encounter Closed Date Diagnosis/Indication Diagnosis SNOMED-CT Code Diagnosis ICD10 Code Diagnosis Note [id number] Amaris Lancaster MD [facility] Primary Care [address] [place] [address] 01/27/2021 00:00:00 02/04/2021 11:10:45 [id number] JONNY Santoyo [facility] Primary Care [address] [place] [address] 08/22/2022 10:21:09 08/22/2022 11:25:58 Adult health examination 725208925 Z00.00 Pt mammogram due next yearColono scopy up to dateDeclin es DEXADeclin es shingrix series Screening for disorder 807447854 Z13.9 Continues to drink a couple beers per day. Stable Vitamin D deficiency 347 84359 E55.9 Hyperglycemia 27586538 Z 13.1 Hypercholesterolemia 136 62823 E78.5 Z79.899 Immunization due 7880028 08 Z28.39 Anxiety 86550813 F41.9 [id number] Amaris Lancaster MD [facility] Primary Care [address] [place] [address] 03/22/2023 16:27:05 03/22/2023 16:58:16 Pain in right hand [id number] 16136 M79.641 -03/18 pain currently- ROM and strength are limited-th robbing noted to the base of the palm-notes occ spasming/c ontracting to the hand-refer ral to ortho given-Dr. Orozco Granulocytosis 315440450 D72.828 -notes hx of over 40 nodules in her lungs-note s occ sob and was told she should have a specialist a long time ago-uses here maintenanc e med daily and occ uses rescue-pul rig builder referral given [id number] Cristin Cook, NISSA-C [facility] [place] [facility] [address] [facility] [address] [place] [address] 12/06/2023 13:52:19 12/06/2023 15:34:48 Adult health examination 203252872 Z00.00 Discussed medication compliance and routine follow up.Discuss ed healthy diet and routine exercise.Peter mcnamarawed vaccine records and made recommenda tions as needed.Enc ouraged annual eye and dental exams, as well as twice yearly dental cleanings. Screening for disorder 320772180 Z13.9 Screening mammography 24 178443 Z12.31 Anxiety 84709221 F41.9 DAYANARA-7 (07/27)Cherry ent is doing well on current medication , will continue to refill.Den ies SI/HI. Gastroesop hageal reflux disease without esophagitis 772143893 K21.9 Patient is doing well on current medication , will refill as needed. Obesity 121907000 E66.9 Weight 231 poundsBMI: 36.2Discus sed healthy diet and routine exercise. Health Concerns Section Related Observation LastModified by Organization Detai ls LastModified Time None Recorded Concern Status LastModified by Organization Details LastModified Time None Recorded Advance Directives Directive None Recorded Payers Insurance Date Sequence Insurance Name Policy Number Policy Aguilar Covered Member ID Aguilar Member ID Guarantor Name 01/29/2024 2 [employer] (MEDICARE SUPPLEMENT) Yanet Gleason [id number] Yanet Vance Victorino 12/03/2023 [facility] Yanet Vance Victorino [id number] Yanet Gleason 03/17/2023 2 AET Yanet Gleason [id number] Yanet Gleason Notes Date Note Type Note [...] considering starting this dose JONNY Santoyo [address] [facility], [place], [address], [email or web address] 08/22/2022 12:50:32 03/22/2023 text/html Pt is here for r ight hand pain JONNY Santoyo [address], [place], [address], [employer] 03/22/2023 17:35:43 12/06/2023 text/html Patient is a [...] patient's allergies and how she reacts to everything. Patient is continuing with the knee injections, they have been working well for the most part. 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 labs-patient had labs drawn over the summer, will obtain results and add labs on as needed.Mammogram-order edWWE-not neededColonoscopy-not neededDEXA-declinesFlu -declinesCovid-UTDTdap -UTDShingles-declinesP neumo-UTD AMELIA Hein - [facility] 12/13/2023 10:09:35 OBGyn Episode No OBEpisode recorded.
--- OUTSIDE RECORDS SUMMARY | 2024-07-23 02:12 | XMS_ITS | Clinical Summary ---
Author Organization [facility] Address [address] [place] [address] Care Team Providers Care Pulp Roller Name Role Phone Yashira Lancaster MD Unavailable [phone] Cristin Cook NP Primary Care Provider [phone] Allergies Active Allergy Reactions Criticality Noted Date [...] Description 06/06/2024 3:15 PM CDT Office Visit [facility] Pulmonology [address] [place] [address] [address] [place] [address] Braxton Rose MD Multiple pulmonary nodules (Primary Dx); Hiatal hernia; Non-seasonal allergic rhinitis due to pollen; Cigarette nicotine dependence in remission; Mediastinal lymphadenopathy; Moderate persistent asthma without complication; BMI 37.0-37.9, adult; Chronic cough; Thyroid nodule 05/07/2024 11:37 AM CDT - 05/07/2024 11:59 PM CDT Hospital [facility] [place] [address] [place] [address] Multiple pulmonary nodules; Hiatal hernia; Chronic cough; Non-seasonal allergic rhinitis due to pollen; Cigarette nicotine dependence in remission; Mediastinal lymphadenopathy; Moderate persistent asthma without complication; Thyroid nodule Discharge Disposition: Discharge to home or self care 04/29/[address] [facility] Medical [facility] Pulmonology [address] [place] [address] [place] [phone] Braxton Rose MD from Last 3 Months Surgical History Surgery Date Site/Laterality Comments ANKLE SURGERY Ankle Surgery - (Added by Conv) KNEE SURGERY Knee Surgery - (Added by Conv) [place] DILATION & CURETTAGE DX&/THER NONOBSTETRIC Dilation And [...] Aron Mendiola M.D. ISAÍAS T: Report ID: [id number] Reading Location: [id number] Procedure Note Larry Mendiola MD - 05/16/2024 [...] Aron Mendiola M.D. ISAÍAS T: Report ID: [id number] Reading Location: [place] [address] Braxton Rose MD IM CT PROCEDURES Final Res ult from Last 3 Months Insurance MEDICARE [facility] MEDICARE [facility] MEDICARE [employer] SENIOR SUPPLEMENT Advance Directives For more information, please contact: [phone] * Full Code (Latest Code Status on File) Date Activated Date Inactivated Comments 07/31/2023 11:28 AM 08/01/2023 5:23 AM Care Teams Pulp Roller Relationship Specialty Start Date End Date Cristin Cook NP [address] [place] [address] PCP - General Family Medicine 04/05/24 Yashira Lancaster MD Referring Physician Family Medicine 03/08/18
--- NOTE | 2024-07-23 07:18 | WPDHPUPDATE1 ---
History and Physical Update Update Date/Time: 07/23/24 07:18 History and Physical has been reviewed, including an updated exam of the patient. There are NO changes in the patient's condition. Risks, benefits, and alternatives have been discussed and questions answered. Patient agrees to proceed with procedure.
[2024-07-23] MEDS: TRANEXAMIC ACID 1,000MG/ISO100 1,000 MG/100 ML BAG 200 MG IVPB (12:30)
[2024-07-23] MEDS: ACETAMINOPHEN 500 MG TABLET 1000 MG PO (12:30)
[2024-07-23] MEDS: LACTATED RINGERS 1,000 ML 30 ML IV CONT ×2 (12:30→15:05)
--- NOTE | 2024-07-23 12:36 | P.PNAN_ITS ---
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 Patient Data Age: 74 Gender: F Height: 1.68 m Weight: 105.7 kg Last Vital Signs Temp 36.7 C 06/26/24 10:24 Pulse 78 06/26/24 10:24 Resp 16 06/26/24 10:24 BP 134/73 06/26/24 10:24 Pulse Ox 96 06/26/24 10:24 O2 Del Method Room Air 06/26/24 10:24 Allergies Allergy/AdvReac Type Severity Reaction Status Date / Time codeine Allergy Severe GI UPSET Verified 06/26/24 10:10 levofloxacin Allergy Severe EXTREME Verified 06/26/24 10:10 PAIN IN JOINTS cephalexin Allergy Intermediate Unknown Verified 06/26/24 10:10 latex Allergy Intermediate rash Verified 06/26/24 10:10 hydrocodone Allergy Mild HIVES Verified 06/26/24 10:10 Quinolones Allergy Mild JOINT PAIN Verified 06/26/24 10:10 morphine Allergy Unknown SEVERE Verified 06/26/24 10:10 CHEST PRESSURE Penicillins Allergy Unknown RASH,HIVES, Verified 06/26/24 10:10 SWELLING Sulfa (Sulfonamide Allergy Unknown RASH,HIVES, Verified 06/26/24 10:10 Antibiotics) SWELLING prednisone AdvReac Unknown Verified 06/26/24 10:10 codeine sulfate AdvReac Intermediate Vomiting Uncoded 06/26/24 10:10 Home Medications ?Medication ?Instructions ?Recorded ?Confirmed ?Type dexlansoprazole 60 mg 60 mg PO DAILY 07/27/21 06/26/24 History capsule,biphase delayed release (Dexilant) multivitamin 1 tablet PO DAILY 07/27/21 06/26/24 History omega-3s 667 je-isu-nhl-fish 2 cap PO .Evening 07/27/21 06/26/24 History oil-vitamin D3 250 unit capsule ([employer]) sertraline 100 mg tablet 100 mg PO DAILY 07/27/21 06/26/24 History acetaminophen 650 mg 1,300 mg PO ONCE 06/26/24 06/26/24 History tablet,extended release (Arthritis Pain Relief (acetaminophen) ER) albuterol sulfate 90 mcg/actuation 2 puff inhalation Q6-8H 06/26/24 06/26/24 History aerosol inhaler fluticasone propionate 115 2 puff inhalation BID 06/26/24 06/26/24 History mcg-salmeterol 21 mcg/actuation HFA inhaler (Advair HFA) montelukast 10 mg tablet 10 mg PO .PM 06/26/24 06/26/24 History protein 1 ea PO DAILY 06/26/24 06/26/24 History red beet 500 mg capsule 1 mg PO DAILY 06/26/24 06/26/24 History tumeric 1 tablet PO DAILY 06/26/24 06/26/24 History aspirin 81 mg tablet,delayed 81 mg PO BID 14 days #28 tabs 07/23/24 Rx release meloxicam 15 mg tablet 15 mg PO DAILY #30 tabs 07/23/24 Rx ondansetron 4 mg disintegrating 4 mg PO Q8H #30 tabs 07/23/24 Rx tablet oxycodone-acetaminophen 5 mg-325 1 - 2 tablet PO Q4-6H PRN pain 7 07/23/24 Rx mg tablet days #30 tabs prednisone 5 mg tablet 5 mg PO DAILY 3 weeks #21 tabs 07/23/24 Rx Laboratory Tests 07/23/24 12:08 Blood Type Pending Antibody Screen Pending Patient hx anesthesia problems: none Family hx anesthesia problems: none Results Review: All pre-operative results and documents have been reviewed as part of the pre- operative evaluation. [facility] Past Medical History Medical History (Updated 07/23/24 @ 12:37 by Dionicio Saldana DO) Lung nodule History of COPD Broken ankle (~2003) Surgical History Surgical History (Updated 07/23/24 @ 10:07 by DENA Dave) H/O dilation and curettage (~1999) Family History Family History Sibling Family history of diabetes mellitus in first degree relative Family history of malignant neoplasm of breast in first degree relative Grandparent Family history of malignant neoplasm of uterus Diabetes mellitus Other Cancer Other Cancer Unknown Acute arthritis Other Family history of malignant neoplasm of breast Social History Social History (Reviewed 06/26/24 @ 09:53 by SCOTT Dave Smoking status: Former smoker Smoking end date: 02/06/93 Alcohol intake: current Alcohol use details: 2 light beers a day. Substance use: never Substance use type: does not use Do You Feel Safe in your Home?: Yes Lack of Transportation: No Lack of Food: Never True Current Housing: I Have Housing Concerned About Future Housing: No Difficulty Paying Gas/Electric Bills: No Difficulty Paying for Meds: No Currently Unemployed: No Education: High School Diploma/GED Difficulty w/ Childcare or Family Care: No Additional living arrangements comments: Ric Mccain Final PreProcedure Day of Procedure 07/23/24 12:36 Patient weight: obese Heart: regular rate and rhythm Lungs: clear to auscultation Airway: Mallampati scale class II Neurological: alert and oriented Last oral intake: >/= 8 hours ASA classification: III Emergent: no Anesthetic plan: proceed Anesthesia type and monitoring: general LMA and standard monitoring Results Review: All pre-operative results and documents have been reviewed as part of the pre- operative evaluation. Informed Consent: The patient's anesthetic plan and its attendant risks and benefits were discussed with the patient/family/POA. Questions were solicited and answers provided to the satisfaction of the patient/family/POA.
[2024-07-23] MEDS: ceFAZolin SODIUM 1 GM VIAL 2 GM IV PUSH (12:48)
[2024-07-23] MEDS: SODIUM CHLORIDE 0.9% IV 38.7 ML, ROPivacaine HCL 1% 200 MG, KETOROLAC INJ (*BKC) 15 MG,... INFILTRATE (13:29)
[2024-07-23] MEDS: TRANEXAMIC ACID 1,000 MG/10 ML AMPUL 1000 MG IV PUSH (14:48)
--- NOTE | 2024-07-23 15:09 | P.OP_ITS ---
Procedure Note - Detailed Date of Procedure 07/23/24 Pre-op Diagnosis Right knee degenerative arthritis. Post-op Diagnosis Same Procedure Performed Total knee arthroplasty, right custom Surgeon Miguel Orozco MD Anesthesia General Findings Advanced disease with medial tibia erosion. Custom implant with optimal fit. Description of Procedure Preoperative antibiotics were given. The limb was prepped and draped in the usual sterile fashion with a well-padded tourniquet high on the thigh. The limb was exsanguinated and the tourniquet inflated to 300 mmHg. A longitudinal incision was created just medial to the patella. A trivector approach to the knee was performed. Arthrotomy was taken down through the joint capsule. No significant releases were initially taken. The femur was exposed and the F1 jig was applied. The coring tool was used to remove the cartilage for the F2 jig to sit flush with the bone. The jig was pinned and the distal cut carefully taken. Caliper measurements confirmed appropriate bony resections according to the preoperative templated plan. The F4 cutting jig for the femur was applied, at the standard rotation. The AP and anterior chamfer cuts were taken. The F5 jig was applied and the posterior chamfer cuts were taken. The tibia was prepared using the T1 jig, after removing cartilage for the jig contact points. Proper alignment was checked with the alignment georgette. The tibia was cut using the T1u guide. Gap balancing was performed. Gap measurements were taken and the knee was trialed. Excellent alignment and soft tissue balancing was confirmed. The posterior cruciate ligament was recessed along the proximal tibia. The patella was cut for resurfacing. Three lug holes were drilled. Meniscal remnants were removed. The trial components were assembled. Excellent range of motion and proper soft tissue balancing were confirmed throughout the full range of motion. Patellar tracking was excellent. The knee was copiously irrigated periodically throughout the procedure. The real implants were ceme nted into position. Excess cement was carefully removed. The wound was closed in layers with interrupted #1 Vicryl suture, 2-0 strata fix suture, 0 strata fix suture, 2-0 strata fix suture. Steri-Strips placed on the skin with the knee flexed. Sterile bulky dressing applied. The patient was brought to the recovery room in stable condition. There were no complications. Implants Conformis Custom total knee arthroplasty. Cemented. Cruciate retaining. 8C insert. 32 mm oval patella. Estimated Blood Loss 50 Drains No Complications No immediate complications Condition Stable Disposition PACU [facility] Billing Surgery - Charge Forward: Surgery Billing
[2024-07-23] MEDS: ONDANSETRON INJ 4 MG/2 ML VIAL IV PUSH (15:19)
[2024-07-23] MEDS: fentaNYL CITRATE INJ (*CRX) 100 MCG/2 ML VIAL 25 MCG IV PUSH ×4 (15:28→16:00)
[2024-07-23] MEDS: diphenhydrAMINE HCl INJ 50 MG/ML VIAL 12.5 MG IV PUSH (15:40)
[2024-07-23] MEDS: oxyCODONE/ACETAMINOPHEN (*CRX) 5-325 MG TABLET 1 TABLET PO (16:58)
[2024-07-23] MEDS: predniSONE 5 MG TABLET PO (17:00)
[2024-07-23] MEDS: MELOXICAM 7.5 MG TABLET PO (17:00)
[2024-07-23] MEDS: SENNA/DOCUSATE SODIUM TABLET 2 TAB PO (17:00)
[2024-07-23] MEDS: MONTELUKAST SODIUM 10 MG TABLET PO (17:57)
[2024-07-23] MEDS: ACETAMINOPHEN 325 MG TABLET 650 MG PO ×2 (17:57→23:20)
[2024-07-23] MEDS: SERTRALINE HCL 50 MG TABLET 100 MG PO (20:27)
[2024-07-23] MEDS: ceFAZolin 2 GM/D5W 50 ML 2 GM/50 ML BAG IVPB (20:28)
[2024-07-23] MEDS: ASPIRIN 81 MG ENTERIC TABLET PO (20:28)
[2024-07-23] MEDS: FAMOTIDINE 20 MG TABLET PO (20:28)
[2024-07-23] MEDS: FLUTICASONE/SALMETEROL 115-21 MCG INHALER 1 PUFF 2 PUFF INHALATION (20:56)
[2024-07-24 02:07] VITALS: BP 132/65; PULSE 81; RESP 18; TEMP 36.4; O2SAT 95
[2024-07-24] MEDS: ceFAZolin 2 GM/D5W 50 ML 2 GM/50 ML BAG IVPB (04:05)
[2024-07-24] MEDS: ACETAMINOPHEN 325 MG TABLET 650 MG PO (05:02)
[2024-07-24 06:07] VITALS: BP 129/67; PULSE 87; RESP 18; TEMP 36.9; O2SAT 94
[2024-07-24 06:08] LABS: Basophils Percent Auto 0.4 % (0.2-1.2); Eosinophils Percent Auto 0.3 % (0-4.4); Hematocrit 32.3 % (37.0-47.0); Hemoglobin 10.5 g/dL (12.0-15.0); Immature Granulocyte Absolute 0.03 K/mm3 (0.00-0.031); Immature Granulocyte Percent A 0.3 % (0-0.5); Lymphocytes Absolute Auto 1.55 K/mm3 (0.9-3.2); Mean Corpuscular HGB Conc 32.5 g/dl (32-36); Mean Corpuscular Hemoglobin 29.7 pg (26-34); Mean Corpuscular Volume 91.5 fl (80-100); Mean Platelet Volume 10.6 fl (7.4-10.4); Monocytes Absolute Auto 0.7 K/mm3 (0.1-0.6); Monocytes Percent Auto 7.9 % (2.6-8.5); Neutrophils Absolute Auto 6.8 K/mm3 (1.3-6.7); Neutrophils Percent Auto 74.1 % (45.5-73.1); Platelet Count Result 162 k/mm3 (150-375); Red Blood Count 3.53 M/mm3 (4.2-5.4); Red Cell Distribution Width 14.8 % (11.5-14.5); White Blood Count 9.1 K/mm3 (4.5-10.0)
[2024-07-24 06:22] LABS: Anion Gap 4 mmol/L (4-12); Blood Urea Nitrogen 11 mg/dL (7-17); Calcium 8.3 mg/dL (8.4-10.2); Carbon Dioxide 27 mmol/L (22-30); Chloride 100 mmol/L (98-107); Estimated CRCL calculation 81 ml/min; Estimated Glomerular Filt Rate > 60; Glucose 112 mg/dL (65-110); Potassium 3.9 mmol/L (3.4-5.0); Sodium 131 mmol/L (137-145)
[2024-07-24 07:35] VITALS: PULSE 84; RESP 20; O2SAT 90
[2024-07-24] MEDS: FLUTICASONE/SALMETEROL 115-21 MCG INHALER 1 PUFF 2 PUFF INHALATION (07:40)
[2024-07-24 07:53] VITALS: BP 111/54; PULSE 82; RESP 14; TEMP 37.2; O2SAT 94
[2024-07-24] MEDS: oxyCODONE/ACETAMINOPHEN (*CRX) 5-325 MG TABLET 1 TABLET PO (08:48)
[2024-07-24] MEDS: MELOXICAM 7.5 MG TABLET PO (08:50)
[2024-07-24] MEDS: FAMOTIDINE 20 MG TABLET PO (08:51)
[2024-07-24] MEDS: PANTOPRAZOLE 40 MG TABLET PO (08:51)
[2024-07-24] MEDS: SENNA/DOCUSATE SODIUM TABLET 2 TAB PO (08:51)
[2024-07-24] MEDS: ASPIRIN 81 MG ENTERIC TABLET PO (08:51)
[2024-07-24] MEDS: polyethylene glycoL 3350 17 GM POWD.PACK PO (08:51)
--- NOTE | 2024-07-24 11:15 | PC.NURSE ---
On 07/24/24, the DIRECTOR OF EPIDEMIOLOGY, Dawn Jones, provided care and completed [employer] documentation on this patient. I have reviewed the DIRECTOR OF EPIDEMIOLOGY's documentation and agree with the findings.
== END 2024-07-24 11:15 | disposition home or self-care (01) ==
LOC: ANHSURGERY 11:22 → ANH3MEDSUR 16:24
PROVIDERS: Physician Assistant Surgical; PCP Nurse Practitioner Family; Visit Provider Orthopaedic Surgery
PROC: (CPT 27447; principal; 2024-07-23 13:30)
DX: M17.11 Unilateral primary osteoarthritis, right knee (principal); J44.9 Chronic obstructive pulmonary disease, unspecified; E66.9 Obesity, unspecified; Z68.37 Body mass index [BMI] 37.0-37.9, adult; Z79.51 Long term (current) use of inhaled steroids; Z79.82 Long term (current) use of aspirin; Z79.891 Long term (current) use of opiate analgesic; Z79.52 Long term (current) use of systemic steroids; Z98.890 Other specified postprocedural states; Z87.891 Personal history of nicotine dependence; Z80.3 Family history of malignant neoplasm of breast; Z80.49 Family history of malignant neoplasm of other genital organs
CPT/HCPCS: 27447; 36415; 73560; 80048; 85025; 86850; 86900; 86901; 94640; 97110; 97161; 97165; 97530; A9270; C1713; C1776; J0171; J0690; J1100; J1200; J1885; J2003; J2405; J2704; J2795; J3010; J7120; J7512

== ENCOUNTER 2024-08-12 09:27 | Outpatient (CLI) | payer MEDICARE, SELFPAY ==
--- NOTE | ~2024-08-12 | XR_ITS ---
Right Knee Technique: AP, lateral, and sunrise views were obtained. Clinical History: Arthroplasty Findings: No fracture or dislocation is seen. Right knee arthroplasty in place, without evidence of c omplication. Soft tissues are unremarkable. No joint effusion is seen. Impression: No acute abnormality. Right knee arthroplasty in place. Reviewed, dictated and finalized at location M. Impression: No acute abnormality. Right knee arthroplasty in place.
--- OUTSIDE RECORDS SUMMARY | 2024-08-12 09:36 | XMS_ITS | Clinical Summary ---
Author Organization [facility] Address [address] [place] [address] Care Team Providers Care Matrix Inspector Name Role Phone Yashira Lancaster MD Unavailable [phone] Cristin Cook NP Primary Care Provider [phone] Allergies Active Allergy Reactions Criticality Noted Date [...] Description 06/06/2024 3:15 PM CDT Office Visit [facility] Medical Group Pulmonology [address] [place] [address] Braxton Rose MD Multiple pulmonary nodules (Primary Dx); Hiatal hernia; Non-seasonal allergic rhinitis due to pollen; Cigarette nicotine dependence in remission; Mediastinal lymphadenopathy; Moderate persistent asthma without complication; BMI 37.0-37.9, adult; Chronic cough; Thyroid nodule from Last 3 Months Surgical History Surgery Date Site/Laterality Comments ANKLE SURGERY Ankle Surgery - (Added by TW Conv) KNEE SURGERY Knee Surgery - (Added by Conv) [place] DILATION & CURETTAGE DX&/THER NONOBSTETRIC Dilation And [...] 05/19/1999 Well Visit 65+ 2014 Covid-19 Vaccine (2023-2 5 season) 2023 11/08/2020, 04/07/2020, 03/21/2020, Additional history exists Fall Risk Assessment 07/30/2024 07/31/2023 Influenza Vaccine (#1) 2024 Pneumococcal vaccine 65+ Completed 08/22/2022, 01/07 Insurance MEDICARE [facility] MEDICARE [facility] MEDICARE [employer] SENIOR SUPPLEMENT Advance Directives For more information, please contact: [phone] * Full Code (Latest Code Status on File) Date Activated Date Inactivated Comments 07/31/2023 11:28 AM 08/01/2023 5:23 AM Care Teams Matrix Inspector Relationship Specialty Start Date End Date Cristin Cook NP [address] [place] [address] PCP - General Family Medicine 04/05/24 Yashira Lancaster MD Referring Physician Family Medicine 03/08/18
--- OUTSIDE RECORDS SUMMARY | 2024-08-12 09:36 | XMS_ITS | Data Portability ---
Author Organization [place] - [facility] [employer], Main Office Address [address] [place] [address] Care Team Providers Care Mail Courier Name Role Phone AMARIS LANCASTER Primary Care Provider AMARIS LANCASTER Referring Provider Assessment No assessment recorded. Plan of Treatment Reminders Order Date Submit Date Provider Last Modified By Organization Details Last Modified Time Details Appointments None recorded. Lab lipid panel, serum 2022 023 [email or web address] [facility] (Lab), [address] [place], [address], 3 12:53:42 lipid panel, serum 2022 023 [email or web address] [facility] (Lab), [address] [place], [address], 3 11:29:25 BMP, serum or plasma 2022 023 [email or web address] [facility] (Lab), [address] [place], [address], 3 11:29:36 CBC w/ auto diff 2022 023 [facility] (Lab), [address] [place], [address], 3 11:29:46 hepatic function panel, serum 2022 023 [email or web address] [facility] (Lab), [address] [place], [address], 3 11:30:18 glycohemogl obin, total, blood [email or web address] (Lab), [address] [place], [address], 3 11:30:47 vitamin D, 25-hydroxy, total, serum [email or web address] (Lab), [address] [place], [address], 3 11:30:32 Referral hand surgeon referral - Please call patient to schedule an appointment . 2023 024 [email or web address] Miguel Orozco MD, [address] [facility] [address], [place], [address], 4 09:00:[address] referral - Please call patient to schedule an appointment 2023 024 [email or web address] Shaun Cowart, [address] [facility] , [address], [place], [address], 4 08:44:18 Procedures None recorded. Surgeries None recorded. Imaging MAMMO, screening, bilateral - Please call pt to schedule 2023 024 [email or web address] [facility], [address], [place], [address], 4 09:42:03 Medication Orders dexlansopra zole 60 mg capsule,bip hase delayed release 2023 024 [facility][id number], [address] [facility], [place], [place], [id number], 4 14:33:47 sertraline 100 mg tablet 2023 024 [id number], [address], [place], [place], [id number], 4 14:33:43 sertraline 100 mg tablet 2022 023 [id number], [address], [place], [place], [id number], 3 11:17:38 Patient TargetsNo targets recorded. Patient Instructions Encounter Date Encounter Id Patient Instructions Last Modified By Organization Details Last Modified Time 08/22/2022 [id number] dementia rating scale-2* TOD Not available 08/22/2022 13:04:41 alcohol misuse* TOD Not available 08/22/2022 13:04:56 depression screening* TOD Not available 08/22/2022 13:05:02 multi-dimensiona l health assessment questionnaire* TOD Not available 08/22/2022 13:04:23 Personalized [facility] lt Plan and Screening Recommendations Advance Directives [...] Negative [email or web address] Not available 08/22/2022 12:47:05 12/06/2023 [id number] dementia rating scale-2* TOD Not available 12/06/2023 [...] Not available 12/06/2023 10:56:18 Reason for Referral Meeting Specialist Referral for G ranulocytosis Please call patient [...] appre ciate your busin ess. Not Available [facility] ([facility]) [address] [facility], [place], [address], 07/15/2021 07:12:23 07/15/19 22 07/14/2021 AMBIG ABBRE [...] ciate your busin ess. Not Available [facility] ([facility]) [address], [place], [address], 07/15/2021 07:12:23 07/15/19 22 07/15/2021 VITAM IN [...] Medic ine). 2010. Dieta ry refer ence intjoey es for calci um and D. Tapan limon [place]: [facility] . 2. Maddi isaacs MF, Yu hodges [place], Radha off-F errar i MEDEL, et al. Evalu ation , treat ment, and preve ntion of vitam in D defic iency : an Endoc rine Socie ty clini vicky pract ice guide line. JCEM. 2010; 96(7) :1911 -30. Not Available [facility] ([facility]) [address], [place], [address], 07/15/2021 07:12:23 07/15/19 22 07/15/2021 TSH TSH 3.550 uIU/m L 0.450- 4.500 Not Available [facility] ([facility]) [address], [place], [address], 07/15/2021 07:12:22 07/15/19 22 07/15/2021 LIPID PANEL cholesterol, total 191 mg/dL 100-19 9 Not Available [facility] ([facility]) [address], [place], [address], 07/15/2021 07:12:22 07/15/19 22 07/15/2021 LIPID PANEL triglyceride s 112 mg/dL 0-149 Not Available [facility] ([facility]) [address] [facility] [facility] [place], [address], 07/15/2021 07:12:22 07/15/19 22 07/15/2021 LIPID PANEL HDL cholesterol 59 mg/dL >39 Not Available [facility] ([facility]) [address] [facility] [place], [address], 07/15/2021 07:12:22 07/15/19 22 07/15/2021 LIPID PANEL VLDL cholesterol vicky 20 mg/dL 5-40 Not Available [facility] ([facility]) [address] [facility] [place], [address], 07/15/2021 07:12:22 07/15/19 22 07/15/2021 LIPID PANEL LDL chol calc (nih) 112 mg/dL 0-99 above high normal Not Available [facility] ([facility]) [address] [facility] [place], [address], 07/15/2021 07:12:22 07/15/19 22 07/15/2021 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 Not Available [facility] ([facility]) [address] [facility] [place], [address], 07/15/2021 07:12:22 07/15/19 22 07/15/2021 BASIC METAB OLIC PANEL (8) glucose 100 mg/dL 65-99 above high normal Not Available [facility] ([facility]) [address] [facility] [place], [address], 07/15/2021 07:12:22 07/15/19 22 07/15/2021 BASIC METAB OLIC PANEL (8) BUN 15 mg/dL 8-27 Not Available [facility] ([facility]) [address] [place], [address], 07/15/2021 07:12:22 07/15/19 22 07/15/2021 BASIC METAB OLIC PANEL (8) creatinine 0.67 mg/dL 0.57-1 .00 Not Available [facility] ([facility]) [address] [facility] [facility] [place], [address], 07/15/2021 07:12:22 07/15/19 22 07/15/2021 BASIC METAB OLIC PANEL (8) potassium 4.3 mmol/ L 3.5-5. 2 Not Available [facility] ([facility]) [address] [facility] [facility] [place], [address], 07/15/2021 07:12:22 07/15/19 22 07/15/2021 BASIC METAB OLIC PANEL (8) eGFR 93 mL/mi n/1.7 3 >59 Not Available [facility] ([facility]) [address] [facility] [place], [address], 07/15/2021 07:12:22 07/15/19 22 07/15/2021 BASIC METAB OLIC PANEL (8) BUN/creatini ne ratio 22 12-28 Not Available [facility] ([facility]) [address] [facility] [place], [address], 07/15/2021 07:12:22 07/15/19 22 07/15/2021 BASIC METAB OLIC PANEL (8) sodium 138 mmol/ L 134-14 4 Not Available [facility] ([facility]) [address] [place], [address], 07/15/2021 07:12:22 07/15/19 22 07/15/2021 BASIC METAB OLIC PANEL (8) chloride 101 mmol/ L 96-106 Not Available [facility] ([facility]) [address] [place], [address], 07/15/2021 07:12:22 07/15/19 22 07/15/2021 BASIC METAB OLIC PANEL (8) carbon dioxide, total 24 mmol/ L 20-29 Not Available [facility] ([facility]) [address], [place], [address], 07/15/2021 07:12:22 07/15/19 22 07/15/2021 BASIC METAB OLIC PANEL (8) calcium 9.1 mg/dL 8.7-10 .3 Not Available [facility] ([facility]) [address] [facility], [place], [address], 07/15/2021 07:12:22 07/15/19 22 07/15/2021 CBC/D IFF AMBIG UOUS DEFAU LT MCHC 33.0 g/dL 31.5-3 5.7 Not Available [facility] ([facility]) [address], [place], [address], 07/15/2021 07:12:21 07/15/19 22 07/15/2021 CBC/D IFF AMBIG UOUS DEFAU LT WBC 5.1 x10e3 /uL 3.4-10 .8 Not Available [facility] ([facility]) [address] [facility], [place], [address], 07/15/2021 07:12:21 07/15/19 22 07/15/2021 CBC/D IFF AMBIG UOUS DEFAU LT RBC 4.50 x10e6 /uL 3.77-5 .28 Not Available [facility] ([facility]) [address] [place], [address], 07/15/2021 07:12:21 07/15/19 22 07/15/2021 CBC/D IFF AMBIG UOUS DEFAU LT hemoglobin 13.3 g/dL 11.1-1 5.9 Not Available [facility] ([facility]) [address], [place], [address], 07/15/2021 07:12:21 07/15/19 22 07/15/2021 CBC/D IFF AMBIG UOUS DEFAU LT hematocrit 40.3 % 34.0-4 6.6 Not Available [facility] ([facility]) [address], [place], [address], 07/15/2021 07:12:21 07/15/19 22 07/15/2021 CBC/D IFF AMBIG UOUS DEFAU LT MCV 90 fL 79-97 Not Available [facility] ([facility]) [address], [place], [address], 07/15/2021 07:12:21 07/15/19 22 07/15/2021 CBC/D IFF AMBIG UOUS DEFAU LT MCH 29.6 pg 26.6-3 3.0 Not Available [facility] ([facility]) [address], [place], [address], 07/15/2021 07:12:21 07/15/19 22 07/15/2021 CBC/D IFF AMBIG UOUS DEFAU LT RDW 14.7 % 11.7-1 5.4 Not Available [facility] ([facility]) [address] [facility] [facility], [place], [address], 07/15/2021 07:12:21 07/15/19 22 07/15/2021 CBC/D IFF AMBIG UOUS DEFAU LT platelets 230 x10e3 /uL 150-45 0 Not Available [facility] ([facility]) [address], [place], [address], 07/15/2021 07:12:21 07/15/19 22 07/15/2021 CBC/D IFF AMBIG UOUS DEFAU LT neutrophils 54 % not estab. Not Available [facility] ([facility]) [address] [place], [address], 07/15/2021 07:12:21 07/15/19 22 07/15/2021 CBC/D IFF AMBIG UOUS DEFAU LT lymphs 34 % not estab. Not Available [facility] ([facility]) [address] [place], [address], 07/15/2021 07:12:21 07/15/19 22 07/15/2021 CBC/D IFF AMBIG UOUS DEFAU LT monocytes 6 % not estab. Not Available [facility] ([facility]) [address], [place], [address], 07/15/2021 07:12:21 07/15/19 22 07/15/2021 CBC/D IFF AMBIG UOUS DEFAU LT eos 5 % not estab. Not Available [facility] ([facility]) [address], [place], [address], 07/15/2021 07:12:21 07/15/19 22 07/15/2021 CBC/D IFF AMBIG UOUS DEFAU LT basos 1 % not estab. 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 0 Not Available [facility] ([facility]) [address], [place], [address], 07/15/2021 07:12:21 07/15/19 22 07/15/2021 CBC/D IFF AMBIG UOUS DEFAU LT lymphs (absolute) 1.7 x10e3 /uL 0.7-3. 1 Not Available [facility] ([facility]) [address] [place], [address], 07/15/2021 07:12:21 07/15/19 22 07/15/2021 CBC/D IFF AMBIG UOUS DEFAU LT monocytes(ab solute) 0.3 x10e3 /uL 0.1-0. 9 Not Available [facility] ([facility]) [address], [place], [address], 07/15/2021 07:12:21 07/15/19 22 07/15/2021 CBC/D IFF AMBIG UOUS DEFAU LT eos (absolute) 0.3 x10e3 /uL 0.0-0. 4 Not Available [facility] ([facility]) [address], [place], [address], 07/15/2021 07:12:21 07/15/19 22 07/15/2021 CBC/D IFF AMBIG UOUS DEFAU LT baso (absolute) 0.1 x10e3 /uL 0.0-0. 2 Not Available [facility] ([facility]) [address] [facility] [address], [place], [address], 07/15/2021 07:12:21 07/15/19 22 07/15/2021 CBC/D IFF AMBIG UOUS DEFAU LT immature granulocytes 0 % not estab. Not Available [facility] ([facility]) [address] [place], [address], 07/15/2021 07:12:21 07/15/19 22 07/15/2021 CBC/D IFF AMBIG UOUS DEFAU LT immature grans (abs) 0.0 x10e3 /uL 0.0-0. 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 Not Available [facility] ([facility]) [address], [place], [address], 07/15/2021 07:12:21 02/18/19 22 02/18/2021 MAMMO , scree melani, digit al, bilat eral No observ ation record ed. [id number] [facility] [address] [facility] [address], [place], [address], 04/06/2022 06:20:00 03/17/19 24 03/16/2023 XR, hand No observ ation record ed. [email or web address] [facility] [address], [place], [address], 04/28/2023 12:10:27 07/31/19 24 07/27/2023 US, thyro id No observ ation record ed. [email or web address] [facility] [address] [facility] , [place], [address], 08/01/2023 09:21:53 08/02/19 24 08/02/2023 XR, knee No observ ation record ed. [email or web address] [facility] [address], [place], [address], 08/30/2023 17:32:48 08/02/19 24 08/02/2023 XR, knee No observ ation record ed. [email or web address] [place] [id number] [facility] [address], [place], [address], 08/30/2023 17:33:04 03/15/19 25 03/14/2024 XR, knee, 3 view No observ ation record ed. [email or web address] [facility] [address], [place], [address], 03/17/2024 15:05:37 05/04/19 25 05/02/2024 CT, lower leg, w/o contr ast No observ ation record ed. [email or web address] [place] [id number] [facility] [address], [place], [address], 05/03/2024 11:07:57 06/15/19 25 06/14/2024 MAMMO , scree melani, bilat eral No observ ation record ed. [email or web address] [facility] [address], [place], [address], 06/17/2024 12:22:46 07/24/19 25 07/23/2024 XR, knee, 3 view No observ ation record ed. [address], [place], [address], 07/23/2024 23:42:18 Result Notes None recorded. Problems Name Problem SNOMED Code Status Onset Date Resolution Date Notes Provider Name and Address Organization Details Recorded Time Gastroesop hageal reflux disease 741675415 Active Not Available [facility] 3 06:15:10 Osteoarthr itis of knee 879066062 Active Not Available [facility] 3 06:15:10 Knee pain Active Not Available [facility] 3 06:15:10 Osteoarthr itis 947359402 Active Not Available [facility] 3 06:15:10 Vitamin D deficiency 97422360 Active 2022 Stone Aguilar, SWATCH MAKER-C [address], [address], [place], [address] , [employer] [facility] 3 11:07:21 Hyperglyce juliet 68774551 Active 2022 Stonekamla Aguilar, SWATCH MAKER-C [address], [address], [place], [address] , [employer] [facility] 3 11:08:10 Hyperchole sterolemia 46680090 Active 2022 Stonekamla Aguilar, SWATCH [employer]ER-C [address], [address], [place], [address] , [employer] [facility] 3 11:08:31 Anxiety 37088176 Active 2022 Stone Aguilar, SWATCH [employer]-C [address], [address], [place], [address] , [employer] [facility] 3 11:15:54 Hordeolum externum of upper eyelid of left eye 0037197721443 02 Active 2022 Stone Aguilar, SWATCH MA[employer]ER-C [address], [address], [place], [address] , [employer] [facility] 3 17:12:52 Pain in right hand 3082765765802 09 Active 2023 Stone Aguilar, SWATCH MA[employer]ER-C [address], [address], [place], [address] , [employer] [facility] 4 15:33:50 Granulocyt osis 052485427 Active 2023 Stone Aguilar, SWATCH MA[employer]ER-C [address], [address], [place], [address] , [employer] [facility] 4 16:48:04 Dyspnea 704558879 Active 2023 Stone Aguilar, SWATCH MAKER-C [address], [address], [place], [address] , [employer] [facility] 4 17:12:59 Gastroesop hageal reflux disease without esophagiti s 792030505 Active 2023 JONNY Topete [address], [place], [address] , [facility] [employer] [facility] 4 15:16:49 Obesity 342849154 Active 2023 JONNY Topete [address], [place], [address] , [employer] [facility] [employer] [facility] 4 15:16:52 Problem Notes None recorded. Procedures Surgical History Date Name Laterality Status Provider Name and Address Organization Details Recorded Time 4 Medicare Wellness CPT Code, subsequent completed Emily Haywood RN [facility] [employer] [facility] 12/06/2023 10:26:02 3 Medicare Wellness CPT Code, subsequent completed Beatriz Anthony RN [facility] [employer] [facility] 08/19/2022 13:09:17 Imaging Results None recorded. Procedure Notes None recorded. Medical Equipment None Reported. Allergies Allergen ID Allergen Name Allergen Category Reaction Reaction Severity Criticality Documentation Date Start Date Code Code System Note Provider Name and Address Organization Details Recorded Time 63010 Symbicort medicatio n Not available Not available Not available 04/06/2022 77775 8 RxNorm blist ers Not Available [facility] 3 06:19:48 43524 Substance with sulfonami de structure and antibacte rial mechanism of action (substanc e) medicatio n nausea Not available Not available 04/06/2022 12734 8003 SNOMED Not Available [facility] 3 06:19:49 66473 prednison e medicatio n itching Not available Not available 04/06/2022 8640 RxNorm Not Available [facility] 3 06:19:49 50663 Product containin g penicilli n (product) medicatio n Not available Not available Not available 04/06/2022 92027 8001 SNOMED swell ing Not Available [facility] 3 06:19:49 89686 morphine medicatio n nausea Not available Not available 04/06/2022 7052 RxNorm Not Available [facility] 3 06:19:49 25920 Levaquin medicatio n arthralgi a (joint pain) Not available Not available 04/06/2022 78951 2 RxNorm Not Available [facility] 3 06:19:49 76328 codeine medicatio n nausea Not available Not available 04/06/2022 2670 RxNorm hives Not Available [facility] 3 06:19:49 30222 fluticaso ne / salmetero l medicatio n Not available Not available Not available 04/06/2022 26769 5 RxNorm irrit ated throa t Not Available [facility] 3 06:19:49 Medications Name Sig Start Date [...] Not Available Not Available No t Available meloxicam 15 mg tablet TAKE ONE-HALF TABLET BY MOUTH TWICE DAILY. TAKE WITH FOOD. STOP IF STOMACH GETS UPSET active Not Available Not Available No t Available prednisone 20 mg tablet Take 2 tablets every day by oral route for 5 days. active Not Available Not Available No t Available sertraline 100 mg tablet TAKE 1 AND 1/2 TABLETS BY MOUTH DAILY WITH FOOD active Not Available Not Available No t Available prednisone 5 mg tablet TAKE 1 TABLET BY MOUTH DAILY FOR 3 WEEKS active Not Available Not Available No t Available clobetasol 0.05 % topical cream 07/02 completed Not Available Not Available Not Available Flonase 50 mcg/actuati on nasal spray,suspe nsion [place] 1 spray every day by intranasa l route. 2016 active Not Available Not Available Not Avai lable triamcinolo ne acetonide 0.1 % topical cream APPLY A THIN LAYER TO THE AFFECTED AREA(S) BY TOPICAL ROUTE 2 TIMES PER DAY 12/05 completed Not Available Not Available Not Available oxycodone-a cetaminophe n 5 mg-325 mg tablet TAKE 1 OR 2 TABLETS BY MOUTH EVERY 4 TO 6 HOURS NEEDED FOR PAIN FOR 7 DAYS active Not Available Not Available No t Available pantoprazol e 40 mg tablet,marichuy yed [...] Not Available Not Available No t Available ondansetron 4 mg disintegrat ing tablet DISSOLVE 1 TABLET ON THE TONGUE EVERY 8 HOURS active Not Available Not Available No t [...] inhaler INHALE 2 PUFFS BY MOUTH TWICE DAILY. RINSE MOUTH WITH WATER AFTER USE. DO NOT SWALLOW active Not Available Not Available No t Available Symbicort 160 mcg-4.5 mcg/actuati on HFA aerosol inhaler Inhale 1 puff twice a day by inhalatio n route. 06/20 completed Not Available Not Available Not Available dexlansopra zole 60 mg capsule,bip hase delayed release TAKE 1 CAPSULE BY MOUTH DAILY active Not Available Not Available No t Available Suprep Bowel Prep Kit 17.5 gram-3.13 gram-1.6 [...] blood by Pulse oximetry Heart rate Systolic And Diastolic Provider Name and Address Organization Details Last Updated DateTime 4 127981. 8 g 37 kg/m2 170.18 cm 97.6 [degF] 99 % 99 % 96 /min 120/78 mm[Hg] Keiko Tracey RN [facility] [employer] 4 16:35:06 Date Recorded Body weight Body temperature Oxygen saturation Oxygen saturation in Arterial blood by Pulse oximetry Heart rate Systolic And Diastolic Provider Name and Address Organization Details Last Updated DateTime 3 415173. 25 g 97 [degF] 97 % 97 % 83 /min 138/80 mm[Hg] Emilie Hernandez CMA [employer] [facility] [employer] 3 10:28:26 Date Recorded Body height Body mass index (BMI) Body weight Body temperature Heart rate Oxygen saturation Oxygen saturation in Arterial blood by Pulse oximetry Systolic blood pressure Provider Name and Address Organization Details Last Updated DateTime 4 170.18 cm 36.2 kg/m2 019000. 84 g 97.4 [degF] 78 /min 98 % 98 % 124 mm[Hg] Mathew Maxwell RN [facility] [employer] [facility] 4 14:00:09 Date Recorded Body mass index (BMI) Body height Oxygen saturation Oxygen saturation in Arterial blood by Pulse oximetry Heart rate Body temperature Body weight Systolic And Diastolic Provider Name and Address Organization Details Last Updated DateTime 1 36.5 kg/m2 170.18 cm 96 % 96 % 82 /min 97.8 [degF] 549548. 02 g 126/80 mm[Hg] Not Available [facility] 06:12:46 Social History Question Answer Notes LastModified by [employer] Details LastModified Time Tobacco Smoking Status Never Smoker Not Available [facility] 04/06/2022 06:11:36 Are You Blind Or Do You Have Difficulty Seeing? No [id number] Information not available 04/06/2022 What Is Your Level Of Caffeine Consumption? Moderate [id number] Information not available 04/06/2022 Are You Deaf Or Do You Have Serious Difficulty Hearing? No [id number] Information not available 04/06/2022 What Type Of Diet Are You Following? REGULAR [id number] Information not available 04/06/2022 What Is Your Relationship Status? [id number] Information not available 04/06/2022 Has Tobacco Cessation Counseling Been Provided? No [id number] Information not available 04/06/2022 Are You Currently In School? No [id number] Information not available 04/06/2022 Do You Have Any Dietary Restrictions? No [id number] Information not available 04/06/2022 Sex: Unknown Functional Status Question Answer Note LastModified by [employer] Details LastModified Time Do you use any illicit or recreational drugs? No [id number] Information not available 04/06/2022 Do you or have you ever used any other forms of tobacco or nicotine? No [id number] Information not available 04/06/2022 What is your occupation? retired [id number] Information not available 04/06/2022 What is your exercise level? Occasional [id number] Information not available 04/06/2022 Mental Status Question Answer Note LastModified by [employer] Details LastModified Time Do you have difficulty concentrating, remembering or making decisions? No [id number] Information not available 04/06/2022 Family History Relationship Description Onset Age of this Age Resolved Age Notes LastModified by Organization Details LastModified Time Father No current problems or disability [id number] Not available 04/06/2022 06:12:04 Mother No current problems or disability [id number] Not available 04/06/2022 06:12:04 Notes:diabetes and cancer ru ns in family on both sides Medical History No medical history recorded. Gynecological HistoryNo gynecological history recorded. Obstetrics History GPAL:G 0 P 0 0 0 0 Immunizations Vaccine Type Date Status Note Provider Nam e and Address Organization Details Recorded Time COVID-19, mRNA, LNP-S, PF, 30 mcg/0.3 mL dose 1 completed Not Available [facility] 04/06/2022 06:19:39 COVID-19, mRNA, LNP-S, PF, 30 mcg/0.3 mL dose 1 completed Not Available [facility] 04/06/2022 06:19:39 COVID-19, mRNA, LNP-S, PF, 30 mcg/0.3 mL dose 1 completed Not Available [facility] 04/06/2022 06:19:39 Pneumococcal conjugate PCV 13 1 completed Not Available [facility] 04/06/2022 06:19:40 pneumococcal polysaccharide PPV23 3 completed JONNY Santoyo [address] [place] [address], [id number], [facility] [email or web address] 08/22/2022 12:42:46 Past Encounters Encounter ID Performer Location Encounter Start Date Encounter Closed Date Diagnosis/Indication Diagnosis SNOMED-CT Code Diagnosis ICD10 Code Diagnosis Note [id number] Amaris Lancaster MD [facility] Primary Care [facility] [address] [facility] [address] [place] [address] 01/27/2021 00:00:00 02/04/2021 11:10:45 [id number] JONNY Santoyo [facility] Primary Care [facility] [address] [facility] [address] [place] [address] 08/22/2022 10:21:09 08/22/2022 11:25:58 Adult health examination 771656375 Z00.00 Pt mammogram due next yearColono scopy up to dateDeclin es DEXADeclin es shingrix series Screening for disorder 718988511 Z13.9 Continues to drink a couple beers per day. Stable Vitamin D deficiency 347 28768 E55.9 Hyperglycemia 57838401 Z 13.1 Hypercholesterolemia 136 62715 E78.5 Z79.899 Immunization due 6292412 08 Z28.39 Anxiety 36276328 F41.9 [id number] Amaris Lancaster MD [facility] Primary Care [address] [place] [address] 03/22/2023 16:27:05 03/22/2023 16:58:16 Pain in right hand 8653746671 14353 M79.641 -03/18 pain currently- ROM and strength are limited-th robbing noted to the base of the palm-notes occ spasming/c ontracting to the hand-refer ral to ortho given-Dr. Orozco Granulocytosis 304610231 D72.828 -notes hx of over 40 nodules in her lungs-note s occ sob and was told she should have a specialist a long time ago-uses here maintenanc e med daily and occ uses rescue-pul certified meeting professional referral given [id number] NISSA Topete-Lara [facility] Primary Care [address] [place] [address] 12/06/2023 13:52:19 12/06/2023 15:34:48 Adult health examination 656183870 Z00.00 Discussed medication compliance and routine follow up.Discuss ed healthy diet and routine exercise.R naimawed vaccine records and made recommenda tions as needed.Enc ouraged annual eye and dental exams, as well as twice yearly dental cleanings. Screening for disorder 463623411 Z13.9 Screening mammography 24 506512 Z12.31 Anxiety 98188086 F41.9 DAYANARA-7 (07/27)Cherry ent is doing well on current medication , will continue to refill.Den ies SI/HI. Gastroesop hageal reflux disease without esophagitis 524175517 K21.9 Patient is doing well on current medication , will refill as needed. Obesity 435473203 E66.9 Weight 231 poundsBMI: 36.2Discus sed healthy diet and routine exercise. Health Concerns Section Related Observation LastModified by Organization Detai ls LastModified Time None Recorded Concern Status LastModified by Organization Details LastModified Time None Recorded Advance Directives Directive None Recorded Payers Insurance Date Sequence Insurance Name Policy Number Policy Aguilar Covered Member ID Aguilar Member ID Guarantor Name 01/29/2024 2 [employer] (MEDICARE SUPPLEMENT) Yanet Gleason [id number] Yanet Gleason 12/03/2023 1 [place] Yanet Gleason [id number] Yanet Gleason 03/17/2023 2 [employer] Yanet Gleason [id number] Yanet Gleason Notes Date [...] anxiety/depression and is considering starting this dose NISSA Santoyo-C [address], [place], [address], [employer] 08/22/2022 12:50:32 03/22/2023 text/html Pt is here for r ight hand pain Stone Aguilar SWATCH [employer]ER-C [address], [place], [address], [employer] 03/22/2023 17:35:43 12/06/2023 text/html Patient is a [...] -declinesCovid-UTDTdap -UTDShingles-declinesP neumo-UTD AMELIA Hein - [place] [email or web address] 12/13/2023 10:09:35 OBGyn Episode No OBEpisode recorded.
--- OUTSIDE RECORDS SUMMARY | 2024-08-12 09:36 | XMS_ITS | Referral Summary ---
Author Organization [facility] Address [address] [place] [address] Care Team Providers Care Toy Electric Train Repairer Name Role Phone Yashira Lancaster MD Unavailable [phone] Cristin Cook NP Primary Care Provider [phone] Encounters Date Type Department Care Team Description 06/06/2024 3:15 PM CDT Office Visit [facility] Pulmonology [address] [place] [address] [address] [place] [address] Braxton Rose MD Multiple pulmonary nodules (Primary Dx); Hiatal hernia; Non-seasonal allergic rhinitis due to pollen; Cigarette nicotine dependence in remission; Mediastinal lymphadenopathy; Moderate persistent asthma without complication; BMI 37.0-37.9, adult; Chronic cough; Thyroid nodule from Last 3 Months Allergies Active Allergy [...] of Treatment Not on file Insurance MEDICARE [facility] MEDICARE [facility] MEDICARE [employer] SENIOR SUPPLEMENT Advance Directives For more information, please contact: [phone] * Full Code (Latest Code Status on File) Date Activated Date Inactivated Comments 07/31/2023 11:28 AM 08/01/2023 5:23 AM Care Teams Toy Electric Train Repairer Relationship Specialty Start Date End Date Cristin Cook NP [address] [place] [address] PCP - General Family Medicine 04/05/24 Yashira Lancaster MD Referring Physician Family Medicine 03/08/18
--- OUTSIDE RECORDS SUMMARY | 2024-08-12 09:36 | XMS_ITS | Continuity of Care Document ---
Author Organization [facility] Address [address] [address] [place] [address] Phone Care Team Providers Care Beverage Sales Consultant Name Role Phone Herberth Winkler Unavailable Unavailable Procedures Procedure Date Eye Exam & Treatment Refraction Eye Exam & Treatment Refraction Advance Directives Directive Yes / No Effective Date File Name No Information Encounters Encounter Description Practice Location Reason(s) For Visit Diagnoses Date Provider Providers Copied on Encounter formerly [facility], [address], [place], [place], [id number], tel:[phone] [facility] No Information [address] Cathi Kevin. [address] , [address], [place], [place], [facility], [place]. tel:[phone] formerly [facility], [address] [place] [address] [address], [place], [place], [id number], tel:[phone] [facility] No Information [address] Maxime Bryce. [address], [place], [place], [facility], [place]. tel:[phone] Family History Family Member Type Diagnosis Age At Onset No Information Payers Payer name Insurance type Covered republican ID Authoriza tion(s) No Information Social History [...]
== END 2024-08-12 09:28 | disposition home or self-care (01) ==
PROVIDERS: PCP Nurse Practitioner Family; Visit Provider Orthopaedic Surgery
DX: Z96.651 Presence of right artificial knee joint (principal)
CPT/HCPCS: 73562